=== PATIENT | female | born 1940 | race Caucasian/White ===

== ENCOUNTER 2017-01-09 14:35 | Inpatient (IN) ==
--- NOTE | 2017-01-09 14:41 | Emergency Department Note ---
Disposition Clinical Impression: CHF (congestive heart failure) Qualifiers: Congestive heart failure type: unspecified congestive heart failure type Congestive heart failure chronicity: acute Qualified Code(s): I50.9 - Heart failure, unspecified Disposition: Admitted As Inpatient Condition: Fair Referrals: Mallika Wooten CNP [Primary Care Provider] - Forms: ED Satisfaction Letter Weakness HPI - General Chief complaint: ED Shortness of Breath/Dyspnea Stated complaint: saul, hemmrhoid bleeding that stopped Time Seen by Provider: 01/09/17 14:39 Source: patient, family, EMS Mode of arrival: EMS Limitations: no limitations Nursing Notes Reviewed: Yes Vital Signs Reviewed: Yes - History of Present Illness HPI Narrative: Patient reports that she has been having shortness of breath "for a long time" that has gradually been getting worse. She also states she has had trouble with some suspected hemorrhoidal bleeding for about 2 days. She states she will sometimes fall asleep on the toilet in her "rectum comes out". She relates this to "cause it to bleed". She has not been passing clots or melena. She denies abdominal pain, nausea, vomiting or diarrhea. She denies any urinary troubles. She denies cough, fevers chills or chest pain. She states she does have history of chronic respiratory insufficiency and is on 3 L of oxygen at all times. She states she does have an inhaler but that she was too weak to use it. She denies any new lower extremity swelling states that she has had to have compressive wraps for 6 months. She indicates her family visited today and insisted that she come in to the emergency department for evaluation. They called a private transport ambulance and she has been brought in for evaluation. Pt Subjective Complaint: generalized weakness/fatigue, other (Dyspnea, suspected hemorrhoidal bleeding) Onset (ago): week(s) Duration: gradually worsening Location: generalized Migration: none Pain Severity: none Worsens with: exertion Associated symptoms: Reports: shortness of breath. Denies: chest pain, confusion, dark stools, diaphoresis, dysuria, easy bruising, headaches, loss of appetite, nausea/vomiting, myalgias, rash, syncope - Related Data Home Medications Medication Instructions Recorded Confirmed Carvedilol [Coreg] 6.25 mg PO BID 01/09/17 01/09/17 Citalopram Hydrobromide 10 mg PO DAILY 01/09/17 01/09/17 [Citalopram HBr] Clopidogrel [Plavix] 75 mg PO DAILY 01/09/17 01/09/17 Diltiazem HCl [Diltiazem ER] 120 mg PO QAM 01/09/17 01/09/17 Ferrous Sulfate 325 mg PO DAILY 01/09/17 01/09/17 Folic Acid 1 mg PO DAILY 01/09/17 01/09/17 Furosemide [Lasix] 40 mg PO DAILY 01/09/17 01/09/17 Gabapentin [Neurontin] 300 mg PO TID 01/09/17 01/09/17 Isosorbide MONOnitrate (24 HR) 30 mg PO DAILY 01/09/17 01/09/17 [Imdur] Loratadine [Allergy Relief] 10 mg PO DAILY 01/09/17 01/09/17 Nitroglycerin [Nitrostat] 0.4 mg SL 01/09/17 Pantoprazole Sodium [Protonix] 40 mg PO BID 01/09/17 01/09/17 Potassium Chloride [K-Tab ER] 20 meq PO DAILY 01/09/17 01/09/17 Ropinirole HCl [Requip] 3 mg PO 01/09/17 Allergies Allergy/AdvReac Type Severity Reaction Status Date / Time codeine AdvReac Vomiting Verified 09/02/15 18:03 [From Tylenol-Codeine #3] All systems ED: reviewed and negative except as stated. Past Medical History - Past Medical History Attestation: Yes The following information was validated with the patient. Source: patient, nursing notes reviewed Medical history: Reports: arthritis, atrial fibrillation, cardiomyopathy, CHF, GERD, GI bleed, hypertension, myocardial infarction, TIA, other Surgical history: Reports: Psychiatric history: Reports: depression [employer] history: Reports: spontaneous - Social History Smoking Status: Never smoker Smokeless Tobacco Status: No Alcohol use: Reports: none Drug use: Reports: none Physical Exam - General Limitations: no limitations General appearance: alert, in no apparent distress - Head Head exam: atraumatic, normocephalic, normal inspection - Eye Eye exam: Present: normal appearance, PERRL, EOMI. Absent: scleral icterus, conjunctival injection - ENT ENT exam: normal exam, normal oropharynx, mucous membranes moist - Neck Neck exam: Present: normal inspection, full ROM, trachea midline - Chest Chest inspection: Present: normal inspection, symmetric chest wall rise - Respiratory Respiratory exam: Present: normal lung sounds bilaterally. Absent: respiratory distress, wheezes, prolonged expiratory phase - Cardiovascular Cardiovascular exam: Present: normal rhythm, irregular rhythm, normal heart sounds. Absent: JVD - Abdominal Exam Abdominal exam: Present: soft, Non-Tender, normal bowel sounds. 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 There is a little bit of a yellowish stool and no blood present.). Absent: black stool, bloody stool, fecal impaction, hemorrhoids, mass, tenderness - Extremities Exam Extremities exam: Present: normal inspection, full ROM, normal capillary refill , pedal edema (1- 2+.). Absent: tenderness, calf tenderness - Expanded Lower Extremity Exam Neurovascular/Tendon exam: Present: normal capillary refill. Absent: motor deficit, sensory deficit, tendon deficit Gait: observed and normal - Neurological Exam Neurological exam: Present: alert, oriented X3 - Psychiatric Psychiatric exam: Present: normal affect, normal mood - Skin Skin exam: Present: warm, dry, intact, normal color. Absent: rash, diaphoresis , pallor Course Course Narrative: 1540: There has been discussed with the patient and Dr. Dean. She is being administered a dose of IV Lasix and is being coordinated with admission to the hospital with verbal orders obtained. Vital Signs Temperature 97.0 F L 01/09/17 14:37 Pulse Rate 47 01/09/17 14:37 Respiratory Rate 18 01/09/17 14:37 Blood Pressure 97/55 01/09/17 14:37 O2 Sat by Pulse Oximetry 92 01/09/17 14:37 Temperature 97.0 F L 01/09/17 14:37 Pulse Rate 52 01/09/17 15:35 Respiratory Rate 22 01/09/17 15:35 Blood Pressure 102/63 01/09/17 15:35 O2 Sat by Pulse Oximetry 96 01/09/17 15:35 Oxygen Delivery Oxygen Delivery Nasal Cannula Weakness - Differential Diagnosis Differential Diagnosis: Likely: anemia, dehydration, medication effect, metabolic - Lab Data Lab results reviewed: Yes I reviewed the patient's lab results. Result diagrams: 01/09/17 14:55 01/09/17 14:55 Lab Results 01/09/17 01/09/17 01/09/17 Range/Units 14:55 14:55 14:55 WBC 4.1 L (4.3-11.1) K/mcL RBC 3.75 L (3.82-4.97) M/mcL Hgb 10.2 L (11.5-15.4) g/dL Hct 35.0 L (35.3-44.9) % MCV 93.3 (83.0-100.0) fL MCH 27.2 L (28.0-33.3) pg MCHC 29.1 L (31.6-35.5) g/dL RDW 16.6 H (11.5-14.5) % Plt Count 131 L (140-400) K/mcL MPV 10.6 (9.4-12.4) fL Immature Gran % 0.5 (0-4) % Seg Neutrophils % 73.8 % Lymphocytes % 16.4 % Monocytes % 7.1 % Eosinophils % 1.5 % Basophils % 0.7 % Neutrophils # 3.0 (1.6-8.9) K/mcL Lymphocytes # 0.7 (0.6-4.6) K/mcL Monocytes # 0.3 (0.0-1.3) K/mcL Eosinophils # 0.1 (0.0-0.6) K/mcL Basophils # 0.0 (0.0-0.2) K/mcL PT 16.1 H (9.4-12.1) Seconds INR 1.5 APTT 29.8 (26.0-36.0) Seconds VBG Lactic Acid (0.5-2.2) mmol/L Sodium 142 (136-145) mEq/L Potassium 4.0 (3.5-4.5) mEq/L Chloride 102 (98-109) mEq/L Carbon Dioxide 28 (19-29) mEq/L BUN 18 (7-20) mg/dL Creatinine 0.89 (0.57-1.11) mg/dL Est GFR ( Amer) > 60 (> 60) Est GFR (Non-Af Amer) > 60 (> 60) BUN/Creatinine Ratio 20 (6-26) Glucose 129 H (70-99) mg/dL Calculated Osmolality 298 (280-300) Calcium 8.1 L (8.6-10.8) mg/dL Troponin I (0-0.03) ng/mL B-Natriuretic Peptide (0-100) pg/mL 01/09/17 01/09/17 01/09/17 Range/Units 14:55 14:55 14:55 WBC (4.3-11.1) K/mcL RBC (3.82-4.97) M/mcL Hgb (11.5-15.4) g/dL Hct (35.3-44.9) % MCV (83.0-100.0) fL MCH (28.0-33.3) pg MCHC (31.6-35.5) g/dL RDW (11.5-14.5) % Plt Count (140-400) K/mcL MPV (9.4-12.4) fL Immature Gran % (0-4) % Seg Neutrophils % % Lymphocytes % % Monocytes % % Eosinophils % % Basophils % % Neutrophils # (1.6-8.9) K/mcL Lymphocytes # (0.6-4.6) K/mcL Monocytes # (0.0-1.3) K/mcL Eosinophils # (0.0-0.6) K/mcL Basophils # (0.0-0.2) K/mcL PT (9.4-12.1) Seconds INR APTT (26.0-36.0) Seconds VBG Lactic Acid 1.1 (0.5-2.2) mmol/L Sodium (136-145) mEq/L Potassium (3.5-4.5) mEq/L Chloride (98-109) mEq/L Carbon Dioxide (19-29) mEq/L BUN (7-20) mg/dL Creatinine (0.57-1.11) mg/dL Est GFR ( Amer) (> 60) Est GFR (Non-Af Amer) (> 60) BUN/Creatinine Ratio (6-26) Glucose (70-99) mg/dL Calculated Osmolality (280-300) Calcium (8.6-10.8) mg/dL Troponin I 0.02 (0-0.03) ng/mL B-Natriuretic Peptide 1427 H (0-100) pg/mL - Radiology Data Radiology results reviewed: Yes I reviewed the patient's radiology results. Single view chest x-ray is performed. This demonstrates cardiomegaly with some increased interstitial markings consistent with pulmonary edema. There is no acute infiltrates, effusion or pneumothorax. This is on my interpretation. Impressions Chest X-Ray 01/09/17 14:40 IMPRESSION: CHF and mild pulmonary edema. D/ / Rony Armas MD / Rony Armas MD Interpreting Provider: Rony Armas MD - EKG Data EKG attestation: Yes I reviewed and interpreted this EKG. EKG shows normal: axis, intervals, QRS complexes, ST-T waves Rate: bradycardia (54) Interpretation: nonspecific ST-T wave changes
[2017-01-09 15:14] LABS: Basophils % 0.7 %; Eosinophils # 0.1 K/mcL (0.0-0.6); Eosinophils % 1.5 %; Hemoglobin 10.2 g/dL (11.5-15.4); Immature Granulocytes % 0.5 % (0-4); Lymphocytes # 0.7 K/mcL (0.6-4.6); Lymphocytes % 16.4 %; Mean Corpuscular HGB Conc 29.1 g/dL (31.6-35.5); Mean Corpuscular Hemoglobin 27.2 pg (28.0-33.3); Mean Corpuscular Volume 93.3 fL (83.0-100.0); Mean Platelet Volume 10.6 fL (9.4-12.4); Monocytes # 0.3 K/mcL (0.0-1.3); Monocytes % 7.1 %; Platelet Count 131 K/mcL (140-400); Red Blood Count 3.75 M/mcL (3.82-4.97); Red Cell Distribution Width 16.6 % (11.5-14.5); Segmented Neutrophils % 73.8 %
[2017-01-09 15:16] LABS: INR 1.5; Prothrombin Time 16.1 Seconds (9.4-12.1)
[2017-01-09 15:18] LABS: Activated Partial Thrombo Time 29.8 Seconds (26.0-36.0)
[2017-01-09 15:23] LABS: BUN/Creatinine Ratio 20 (6-26); Blood Urea Nitrogen 18 mg/dL (7-20); Calcium 8.1 mg/dL (8.6-10.8); Carbon Dioxide 28 mEq/L (19-29); Chloride 102 mEq/L (98-109); Glucose 129 mg/dL (70-99); Osmolality,Calculated 298 (280-300); Sodium 142 mEq/L (136-145); eGFR For African Americans > 60 (> 60); eGFR For Non-African Americans > 60 (> 60)
[2017-01-09] MEDS ORDERED: Furosemide 40 MG/4 ML VIAL IVP ONE (15:37)
[2017-01-09] MEDS ORDERED: Ondansetron 4 MG/2 ML VIAL IVP ONE ×2 (15:56→17:23)
[2017-01-09] MEDS ORDERED: Naloxone 0.4 MG/ML INJ IVP PRN (17:23)
[2017-01-09] MEDS ORDERED: Ondansetron 4 MG/2 ML VIAL IVP PRN (17:23)
[2017-01-09] MEDS ORDERED: MOM Conc 10 ML UD.LIQ PO PRN (17:23)
[2017-01-09] MEDS: Gabapentin 300 MG CAPSULE PO SCH (20:58)
[2017-01-09] MEDS: Acetaminophen 325 MG TABLET PO PRN (20:58)
[2017-01-10 06:06] LABS: Bilirubin,Urine Small (Negative); Blood,Urine Trace-intact (Negative); Clarity,Urine Clear (Clear); Color,Urine Dark Yellow (Yellow); Glucose,Urine (UA) Normal (Normal); Ketones,Urine Negative (Negative); Leukocyte Esterase,Urine Small (Negative); Nitrite,Urine Negative (Negative); PH,Urine 5.5 pH Units (5.0-8.0); Protein,Urine Trace mg/dL (Neg-Trace); Specific Gravity,Urine 1.015 (1.010-1.025)
[2017-01-10 06:16] LABS: Hyaline Casts,Urine Few per lpf (None-Few); RBC,Urine 0-3 per hpf (0-3); Squamous Epithelial Cell,Urine Few per lpf (None-Few)
[2017-01-10] MEDS ORDERED: Furosemide 40 MG TABLET PO SCH (09:00)
[2017-01-10] MEDS ORDERED: Isosorbide MONOnitrate (24 HR) 30 MG TAB.ER.24H PO SCH ×2 (09:00→12:03)
[2017-01-10] MEDS: Gabapentin 300 MG CAPSULE PO SCH ×3 (09:32→20:31)
[2017-01-10] MEDS: Diltiazem CD (24hr) 120 MG CAPSULE PO SCH (09:32)
[2017-01-10] MEDS: Folic Acid 1 MG TABLET PO SCH (09:32)
[2017-01-10] MEDS: Loratadine 10 MG TABLET PO SCH (09:32)
--- NOTE | 2017-01-10 12:09 | Internal Med History&Physical ---
Date of Encounter: 01/10/17 Time of Encounter: 11:30 Assessment and Plan (1) Chronic diastolic CHF (congestive heart failure) Current visit: No Status: Acute Will change Lasix to IV Bumex. Increase isosorbide and monitor labs. (2) A-fib Current visit: No Status: Acute She had GI bleed on NOAC (Xarelto) in the past. Continue Plavix. Her rate is controlled. Qualifiers: Atrial fibrillation type: chronic Qualified Code(s): I48.2 - Chronic atrial fibrillation (3) Anemia Current visit: No Status: Acute Will order anemia testing in a.m. Qualifiers: Anemia type: unspecified type Qualified Code(s): D64.9 - Anemia, unspecified (4) DM type 2 (diabetes mellitus, type 2) Current visit: Yes Status: Acute We will check hemoglobin A1c in a.m. Qualifiers: Diabetes mellitus complication status: without complication Diabetes mellitus rat exterminator insulin use: without mcfp use Qualified Code(s): E11.9 - Type 2 diabetes mellitus without complications (5) High blood pressure Current visit: Yes Status: Chronic Continue home regimen and monitor blood pressure. Qualifiers: Hypertension type: essential hypertension Qualified Code(s): I10 - Essential (primary) hypertension Internal Medicine - H&P: HPI Chief complaint: Dyspnea Admitted From: Home Plans for Post Hospital Care: Home History of present illness: Ms. Castaneda is a 76 year old female who came to emergency room stating she had increasing dyspnea over the past 2 months. It seemed to worsen over the past 1- 2 days and her family decided she should come to the hospital. She was evaluated in emergency room and felt to have exacerbation of heart failure. She was admitted to [facility] floor for ongoing care needs. Her cardiovascular history is significant for heart failure with preserved ejection fraction. Echocardiogram done 10/17/2016 showed LVEF 65%. Echocardiogram June 2016 showed concentric LVH with the interventricular septum and posterior wall thickness measurements 1.4 cm each. There was biatrial enlargement with left atrial size recorded 4.5 cm. There was mild to moderate AI, mild , mild MR, and severe TR. The estimated RVSP was elevated at 52-62 mmHg. She had questionable NSTEMI June 2014 at [facility]. Heart catheter showed moderate coronary artery disease without intervention done. She has chronic atrial fibrillation and is maintained on Plavix since she had GI bleed on Xarelto. She denies DVT or pulmonary embolus. She has history of hypertension. Her respiratory history is significant for being a lifelong nonsmoker. She has been diagnosed with COPD and wears oxygen 01/01 at home at 3 L/m. Past Med Surg Social Fam HX - Past Medical History Medical history: arthritis, atrial fibrillation, cardiomyopathy, CHF, GERD, GI bleed, hypertension, myocardial infarction, TIA, other Psychiatric history: depression - Past Surgical History Surgical History: - Social History Smoking Status: Never smoker Smokeless Tobacco Status: No Alcohol use: none Drug use: none - Family History Mother Living Status: Hx Family GI Disorders: Yes Internal Medicine - H&P: Meds Carvedilol [Coreg] 6.25 mg PO BID 01/09/17 [History] Citalopram Hydrobromide [Citalopram HBr] 10 mg PO DAILY 01/09/17 [History] Clopidogrel [Plavix] 75 mg PO DAILY 01/09/17 [History] Diltiazem HCl [Diltiazem ER] 120 mg PO QAM 01/09/17 [History] Ferrous Sulfate 325 mg PO DAILY 01/09/17 [History] Folic Acid 1 mg PO DAILY 01/09/17 [History] Furosemide [Lasix] 40 mg PO DAILY 01/09/17 [History] Gabapentin [Neurontin] 300 mg PO TID 01/09/17 [History] HYDROcodone/Acet 7.5/325 mg [[place] 7.5-325 mg] 1 tab PO Q6H 01/09/17 [History] Isosorbide MONOnitrate (24 HR) [Imdur] 30 mg PO DAILY 01/09/17 [History] Loratadine [Allergy Relief] 10 mg PO DAILY 01/09/17 [History] Nitroglycerin [Nitrostat] 0.4 mg SL 01/09/17 [History] Pantoprazole Sodium [Protonix] 40 mg PO BID 01/09/17 [History] Potassium Chloride [K-Tab ER] 20 meq PO DAILY 01/09/17 [History] Ropinirole HCl [Requip] 3 mg PO 01/09/17 [History] Ventolin Hfa 01/09/17 [History] Allergies codeine [From Tylenol-Codeine #3] Adverse Reaction (Verified 09/02/15 18:03) Vomiting All Systems PM: A 10-system review of systems was performed and is negative for pertinent findings except as documented above in the HPI. Review of systems: Gen.: She states her weight is increased 10-20 pounds in the past year Cardiovascular: As per history of present illness Respiratory: As per history of present illness GI: She denies disorders of her liver gallbladder or exocrine pancreas. She had GI bleed from taking Xarelto several years ago. She has rare GERD symptoms. : No history of hematuria dysuria or kidney stones Neurologic: She states she had a "mini stroke" in the past but no permanent neurologic deficit. She has history of RLS. She denies seizures. Endocrine: She was diagnosed with borderline DM 2 in the past. Hemoglobin A1c was 6.4% on 07/05/2014. She denies thyroid disease or hyperlipidemia Hematology/oncology: She denies blood disorders or cancers. She is anemic and takes iron and folate replacements Psychiatric: She has depression but denies anxiety or other mental health issues Musk skeletal: She has DJD but denies gout or osteoporosis. - Constitutional Vitals: Temp Pulse Resp BP Pulse Ox 97.7 F 80 20 151/76 98 01/10/17 11:16 01/10/17 11:16 01/10/17 11:16 01/10/17 11:16 01/10/17 11:16 Exam: Gen.: She is well-developed overweight female sitting on the side of bed who appears in minimal distress HEENT: Head is atraumatic and normal cephalic. Eyes: EOMI. There is no scleral icterus. Mouth: Mucosa is moist. Neck: Supple and nontender. There is no thyromegaly or adenopathy noted. Heart: Irregularly irregular without murmurs heard. Lungs: No wheezes or crackles are heard. Abdomen: She has a large abdomen. It is nontender to palpation. Exam is limited because she is in the seated position. Extremities: She has 2-3+ edema of the dorsum of the feet and lower legs bilaterally. Dorsalis pedis and posterior tibial pulses are not palpable. She has mild DJD changes of her hands. Neurologic: Mental status: She is talkative and a reliable historian. Cranial nerves: Smile is symmetric. Forehead wrinkles bilaterally. Tongue protrudes midline. EOMI. Motor: There is no pronator drift. Cerebellar: Finger to nose is intact bilaterally. Skin: Warm and dry Internal Med - H&P Results - Labs CBC & Chem 7: 01/09/17 14:55 01/09/17 14:55 Labs: Cardiac Enzymes 01/09/17 01/09/17 01/10/17 Range/Units 18:25 23:45 05:41 Troponin I 0.01 0.02 0.02 (0-0.03) ng/mL
[2017-01-10] MEDS: Bumetanide 1 MG/4 ML VIAL IVP SCH ×2 (12:47→17:50)
[2017-01-10] MEDS: Acetaminophen 325 MG TABLET PO PRN (15:32)
[2017-01-10] MEDS ORDERED: *HR* HYDROcodone/Acet 7.5/325 mg TABLET PO PRN (19:53)
[2017-01-10] MEDS: *HR* HYDROcodone/Acet 7.5/325 mg TABLET PO PRN (20:32)
--- NOTE | 2017-01-10 20:37 | Electrocardiograph Report ---
[address] [place], [place] [address] Test Date: 2017-01-09 Pat Name: Elizabeth Castaneda Department: 9201 Room: [facility] Gender: F Customer Support Manager: [id number] : 1940 Requested By: Sumit Ceballos Order Number: [id number] Reading MD: Yehuda Prajapati MD Measurements Intervals [place] Rate: 54 P: LA: 0 QRS: 77 QRSD: 82 T: 7 QT: 454 QTc: 439 Interpretive Statements ATRIAL FIBRILLATION WITH SLOW VENTRICULAR RESPONSE LOW QRS VOLTAGE IN PRECORDIAL LEADS Electronically Signed On 01-10-2017 20:35:29 EDT by Yehuda Prajapati MD
[2017-01-11] MEDS: *HR* HYDROcodone/Acet 7.5/325 mg TABLET PO PRN ×2 (04:55→11:52)
[2017-01-11] MEDS ORDERED: *HR* Enoxaparin 40 MG/0.4 ML SYRINGE SQ SCH (06:00)
[2017-01-11 06:38] VITALS: BP 129/77
[2017-01-11 06:40] LABS: Basophils % 0.5 %; Eosinophils # 0.1 K/mcL (0.0-0.6); Eosinophils % 1.6 %; Hematocrit 35.1 % (35.3-44.9); Hemoglobin 10.5 g/dL (11.5-15.4); Immature Granulocytes % 0.5 % (0-4); Lymphocytes # 0.7 K/mcL (0.6-4.6); Lymphocytes % 10.7 %; Mean Corpuscular HGB Conc 29.9 g/dL (31.6-35.5); Mean Corpuscular Hemoglobin 27.3 pg (28.0-33.3); Mean Corpuscular Volume 91.4 fL (83.0-100.0); Mean Platelet Volume 10.3 fL (9.4-12.4); Monocytes # 0.5 K/mcL (0.0-1.3); Monocytes % 7.7 %; Platelet Count 153 K/mcL (140-400); Red Blood Count 3.84 M/mcL (3.82-4.97); Red Cell Distribution Width 16.7 % (11.5-14.5)
[2017-01-11 06:56] LABS: Alanine Aminotransferase 18 Units/L (0-55); Albumin/Globulin Ratio 0.8 (1.1-2.2); Alkaline Phosphatase 148 Units/L (38-126); Aspartate Amino Transferase 24 Units/L (5-34); BUN/Creatinine Ratio 21 (6-26); Bilirubin,Total 1.3 mg/dL (0.2-1.2); Blood Urea Nitrogen 19 mg/dL (7-20); Calcium 8.5 mg/dL (8.6-10.8); Carbon Dioxide 30 mEq/L (19-29); Chloride 100 mEq/L (98-109); Globulin 3.7 g/dL (2.4-3.5); Glucose 111 mg/dL (70-99); Magnesium 2.1 mg/dL (1.6-2.6); Osmolality,Calculated 295 (280-300); Sodium 141 mEq/L (136-145); Total Protein 6.7 g/dL (6.0-8.3); eGFR For African Americans > 60 (> 60); eGFR For Non-African Americans 59 (> 60)
[2017-01-11 09:57] LABS: % Iron Saturation 16 % (15-50); Iron 46 mcg/dL (50-170); Transferrin 209 mg/dL (180-382)
[2017-01-11] MEDS: Bumetanide 1 MG/4 ML VIAL IVP SCH (10:15)
[2017-01-11] MEDS: Folic Acid 1 MG TABLET PO SCH (10:16)
[2017-01-11] MEDS: Gabapentin 300 MG CAPSULE PO SCH (10:16)
[2017-01-11] MEDS: Loratadine 10 MG TABLET PO SCH (10:16)
[2017-01-11] MEDS: Diltiazem CD (24hr) 120 MG CAPSULE PO SCH (10:16)
[2017-01-11 10:19] LABS: Ferritin 234 ng/ml (5-204)
[2017-01-11 10:28] LABS: Hemoglobin A1C 5.9 %
[2017-01-11 10:33] LABS: Folate 16.8 ng/mL (7.0-31.4)
--- NOTE | 2017-01-11 10:35 | Discharge Summary ---
Date of Encounter: 01/11/17 Time of Encounter: 10:20 - Discharge Diagnosis (1) Chronic diastolic CHF (congestive heart failure) Priority: Primary Status: Acute (2) A-fib Priority: Secondary Status: Chronic Qualifiers: Atrial fibrillation type: chronic Qualified Code(s): I48.2 - Chronic atrial fibrillation (3) Anemia Priority: Secondary Status: Acute Qualifiers: Anemia type: unspecified type Qualified Code(s): D64.9 - Anemia, unspecified (4) DM type 2 (diabetes mellitus, type 2) Priority: Secondary Status: Chronic Qualifiers: Diabetes mellitus complication status: without complication Diabetes mellitus computer terminal operator insulin use: without prison use Qualified Code(s): E11.9 - Type 2 diabetes mellitus without complications (5) High blood pressure Priority: Secondary Status: Chronic Qualifiers: Hypertension type: essential hypertension Qualified Code(s): I10 - Essential (primary) hypertension - Discharge Medications Prescriptions: Bumetanide [Bumex] 2 mg PO DAILY #60 tablet Isosorbide MONOnitrate (24 HR) [Imdur] 60 mg PO DAILY #30 tab.er.24h Home Medications: Carvedilol [Coreg] 6.25 mg PO BID 01/09/17 [History] Citalopram Hydrobromide [Citalopram HBr] 10 mg PO DAILY 01/09/17 [History] Clopidogrel [Plavix] 75 mg PO DAILY 01/09/17 [History] Diltiazem HCl [Diltiazem ER] 120 mg PO QAM 01/09/17 [History] Ferrous Sulfate 325 mg PO DAILY 01/09/17 [History] Folic Acid 1 mg PO DAILY 01/09/17 [History] HYDROcodone/Acet 7.5/325 mg [[place] 7.5-325 mg] 1 tab PO Q6H 01/09/17 [History] Nitroglycerin [Nitrostat] 0.4 mg SL 01/09/17 [History] Pantoprazole Sodium [Protonix] 40 mg PO BID 01/09/17 [History] Potassium Chloride [K-Tab ER] 20 meq PO DAILY 01/09/17 [History] Ropinirole HCl [Requip] 3 mg PO 01/09/17 [History] Ventolin Hfa 01/09/17 [History] Bumetanide [Bumex] 2 mg PO DAILY #60 tablet 01/11/17 [Rx] Gabapentin [Neurontin] 300 mg PO BID #0 01/11/17 [Rx] Isosorbide MONOnitrate (24 HR) [Imdur] 60 mg PO DAILY #30 tab.er.24h 01/11/17 [ Rx] Loratadine [Allergy Relief] 10 mg PO DAILY PRN #0 01/11/17 [Rx] Allergies/Adverse Reactions: Allergies codeine [From Tylenol-Codeine #3] Adverse Reaction (Verified 09/02/15 18:03) Vomiting Date of admission: 01/10/17 17:08 Primary care physician: Mallika Wooten CNP - Patient Status Disposition: Home Health Service Condition: Fair Functional capacity at discharge: wheelchair bound Overall status at discharge: patient is progressing back to baseline - Discharge Instructions Follow Up With: Mallika Wooten CNP [Primary Care Provider] - 1 week - Diet and Activity Activity: resume usual activities as tolerated Diet: advance to your usual diet Hospital course: Ms. Castaneda is a 76 year old female who came to emergency room stating she had increasing dyspnea over the past 2 months. It seemed to worsen over the past 1- 2 days and her family decided she should come to the hospital. She was evaluated in emergency room and felt to have exacerbation of heart failure. She was admitted to [facility] floor for ongoing care needs. Initial orders were written by the emergency room physician. I saw her on January 10 and performed the history and physical. She was started on IV Bumex. Lasix was discontinued. Isosorbide dose was increased to 60 mg daily. When I saw her on the following day her dyspnea had improved and she felt stable for discharge home which I felt was reasonable. She will continue on the higher dose isosorbide and remain on Bumex instead of Lasix. Anemia testing was ordered with several results pending at time of discharge. Hemoglobin A1c returned acceptable at 5.9%. She will be discharged home and follow with her PCP Mallika Wooten CNP within 1 week. - Time Spent with Patient Total time spent providing and/or coordinating discharge services: - Constitutional Vitals: Temp Pulse Resp BP Pulse Ox 97.8 F 78 16 129/77 98 01/11/17 06:31 01/11/17 06:31 01/11/17 06:31 01/11/17 06:31 01/11/17 06:31
--- NOTE | 2017-01-11 10:41 | Physician Discharge Referral ---
Home Health/Hosp Referral Info Transfer to: Home Health Attending Provider: Jermaine Provider in Charge Post Discharge: PCP (Mallika Wooten CNP) - Diagnosis (1) Chronic diastolic CHF (congestive heart failure) Priority: Primary Status: Acute (2) A-fib Priority: Secondary Status: Chronic (3) Anemia Priority: Secondary Status: Acute (4) DM type 2 (diabetes mellitus, type 2) Priority: Secondary Status: Chronic (5) High blood pressure Priority: Secondary Status: Chronic - Respiratory Orders Oxygen / L per min (Continue oxygen at home at 3 L/m by nasal cannula 01/01.) Smoking Cessation: Smoking cessation has been advised. For more information, call the [place] Tobacco Quit Line at 8-891-GJOQ-NOW. - Diet/Nutrition Diet/Nutrition Orders: Regular - Activity Activity Orders: Chair - Services Needed Following services are medically necessary services: Nursing, Home Health Aide, Physical Therapy, Occupational Therapy - Transfer Medications Prescriptions: Bumetanide [Bumex] 2 mg PO DAILY #60 tablet Isosorbide MONOnitrate (24 HR) [Imdur] 60 mg PO DAILY #30 tab.er.24h Home Medications: Carvedilol [Coreg] 6.25 mg PO BID 01/09/17 [History] Citalopram Hydrobromide [Citalopram HBr] 10 mg PO DAILY 01/09/17 [History] Clopidogrel [Plavix] 75 mg PO DAILY 01/09/17 [History] Diltiazem HCl [Diltiazem ER] 120 mg PO QAM 01/09/17 [History] Ferrous Sulfate 325 mg PO DAILY 01/09/17 [History] Folic Acid 1 mg PO DAILY 01/09/17 [History] HYDROcodone/Acet 7.5/325 mg [[place] 7.5-325 mg] 1 tab PO Q6H 01/09/17 [History] Nitroglycerin [Nitrostat] 0.4 mg SL 01/09/17 [History] Pantoprazole Sodium [Protonix] 40 mg PO BID 01/09/17 [History] Potassium Chloride [K-Tab ER] 20 meq PO DAILY 01/09/17 [History] Ropinirole HCl [Requip] 3 mg PO 01/09/17 [History] Ventolin Hfa 01/09/17 [History] Bumetanide [Bumex] 2 mg PO DAILY #60 tablet 01/11/17 [Rx] Gabapentin [Neurontin] 300 mg PO BID #0 01/11/17 [Rx] Isosorbide MONOnitrate (24 HR) [Imdur] 60 mg PO DAILY #30 tab.er.24h 01/11/17 [ Rx] Loratadine [Allergy Relief] 10 mg PO DAILY PRN #0 01/11/17 [Rx] Allergies/Adverse Reactions: Allergies codeine [From Tylenol-Codeine #3] Adverse Reaction (Verified 09/02/15 18:03) Vomiting Certification: Further, I certify that my clinical findings support that this patient is homebound (i.e. absences from home require considerable and taxing effort and are for medical reasons or zoroastrianism services or infrequently or short duration when for other reasons) because: Homebound Reason: Leaving home requires considerable and taxing effort due to condition (Inability to walk) Attestation: My signature below is to certify that this patient is under my care and that I, or nurse practitioner, or a physician's assistant finance manager working with me, has a face-to -face encounter with this patient.
== END 2017-01-11 12:35 | disposition home health service (06) | DRG 293 ==
LOC: INPPIK 14:35 → EMEROOPIK 14:35 → INPPIK 16:45
PROVIDERS: ADMIT Internal Medicine; ATTEND Internal Medicine

== ENCOUNTER 2017-01-16 16:23 | Inpatient (IN) ==
[2017-01-16] MEDS ORDERED: Bumetanide 1 MG/4 ML VIAL IVP ONE (16:30)
--- NOTE | 2017-01-16 16:33 | Emergency Department Note ---
Disposition Clinical Impression: CHF (congestive heart failure) Qualifiers: Congestive heart failure type: systolic Congestive heart failure chronicity: acute on chronic Qualified Code(s): I50.23 - Acute on chronic systolic ( congestive) heart failure Disposition: Admitted As Inpatient Condition: Good Referrals: Mallika Wooten PLANER OFFBEARER [Primary Care Provider] - Forms: ED Satisfaction Letter Time of Disposition: 17:59 SOB HPI - General Chief Complaint: ED Shortness of Breath/Dyspnea Stated Complaint: Difficulty Breathing Time Seen by Provider: 01/16/17 16:25 Source: patient Mode of arrival: EMS Limitations: no limitations Nursing Notes Reviewed: Yes Vital Signs Reviewed: Yes - History of Present Illness 76-year-old white female with a history of congestive heart failure who presents complaining of shortness of breath. She was actually seen and admitted here on 01/10/17 for the same. She states she has been short of breath since she was discharged, getting gradually worse. No chest pain. No cough. She has chronic leg edema which she states is worse. When she was discharged she was switched to excess and her M Fidencio dose was increased. She did not implement these changes because she wanted to check with her residential driver before changing her medications. She has an appointment with her residential driver on the . Pt Subjective Complaint: shortness of breath Onset (ago): week(s) (1) Context: other (History of congestive heart failure) Severity: moderate Consistency/Duration: constant Improves with: oxygen, rest Worsens with: lying flat, exertion Known history of: congestive heart failure Associated symptoms: Reports: denies other symptoms Treatment prior to arrival: oxygen Cough present: No - Related Data Home oxygen amount: 3 liters Home Medications Medication Instructions Recorded Confirmed Carvedilol [Coreg] 6.25 mg PO BID 01/09/17 01/09/17 Citalopram Hydrobromide 10 mg PO DAILY 01/09/17 01/09/17 [Citalopram HBr] Clopidogrel [Plavix] 75 mg PO DAILY 01/09/17 01/09/17 Diltiazem HCl [Diltiazem ER] 120 mg PO QAM 01/09/17 01/09/17 Ferrous Sulfate 325 mg PO DAILY 01/09/17 01/09/17 Folic Acid 1 mg PO DAILY 01/09/17 01/09/17 HYDROcodone/Acet 7.5/325 mg [[place] 1 tab PO Q6H 01/09/17 01/09/17 7.5-325 mg] Nitroglycerin [Nitrostat] 0.4 mg SL PRN 01/09/17 Pantoprazole Sodium [Protonix] 40 mg PO BID 01/09/17 01/09/17 Potassium Chloride [K-Tab ER] 20 meq PO DAILY 01/09/17 01/09/17 Ropinirole HCl [Requip] 3 mg PO DAILY 01/09/17 Previous Rx's Medication Instructions Recorded Bumetanide [Bumex] 2 mg PO DAILY #60 tablet 01/11/17 Gabapentin [Neurontin] 300 mg PO BID #0 01/11/17 Isosorbide MONOnitrate (24 HR) 60 mg PO DAILY #30 tab.er.24h 01/11/17 [Imdur] Loratadine [Allergy Relief] 10 mg PO DAILY PRN #0 01/11/17 Allergies Allergy/AdvReac Type Severity Reaction Status Date / Time codeine AdvReac Vomiting Verified 09/02/15 18:03 [From Tylenol-Codeine #3] All systems ED: reviewed and negative except as stated. Constitutional: Denies: fever, chills Cardiovascular: Denies: chest pain Respiratory: Reports: dyspnea. Denies: cough Gastrointestinal: Denies: abdominal pain Musculoskeletal: Reports: other (Leg edema) Past Medical History - Past Medical History Medical history: Reports: arthritis, atrial fibrillation, cardiomyopathy, CHF, GERD, GI bleed, hypertension, myocardial infarction, TIA, other Surgical history: Reports: Psychiatric history: Reports: depression PARLIAMENTARY ARCHIVIST history: Reports: spontaneous - Social History Smoking Status: Never smoker Smokeless Tobacco Status: No Alcohol use: Reports: none Drug use: Reports: none Physical Exam - General Limitations: no limitations General appearance: alert, in no apparent distress - Head Head exam: atraumatic, normocephalic - Eye Eye exam: Present: PERRL, EOMI - ENT ENT exam: normal oropharynx, mucous membranes moist - Neck Neck exam: Present: normal inspection, full ROM, trachea midline. Absent: lymphadenopathy - Respiratory Respiratory exam: Present: other (Decreased breath sounds in the bases to midlung field. Bibasilar rales from bases to midlung field.). Absent: respiratory distress - Cardiovascular Cardiovascular exam: Present: regular rate, gallop. Absent: systolic murmur, diastolic murmur - Abdominal Exam Abdominal exam: Present: soft, Non-Tender, other (Obese) - Extremities Exam Extremities exam: Present: other (3-4+ nonpitting edema below the knees including the ankles and feet. Teresa boots in place.). Absent: tenderness - Neurological Exam Neurological exam: Present: alert, oriented X3. Absent: motor sensory deficit - Psychiatric Psychiatric exam: Present: normal affect, normal mood - Skin Skin exam: Present: warm, dry, intact. Absent: cyanosis, diaphoresis Course - Reevaluation(s) Reevaluation #1: Discussed with Dr. Dean. He has accepted the patient for admission. Time: 17:58 Vital Signs Temperature 98.4 F 01/16/17 16:25 Pulse Rate 60 01/16/17 16:25 Respiratory Rate 24 01/16/17 16:25 Blood Pressure 109/66 01/16/17 16:25 O2 Sat by Pulse Oximetry 99 01/16/17 16:25 Temperature 98.1 F 01/16/17 17:54 Pulse Rate 70 01/16/17 17:54 Respiratory Rate 20 01/16/17 17:54 Blood Pressure 131/92 01/16/17 17:54 O2 Sat by Pulse Oximetry 100 01/16/17 17:54 Oxygen Delivery Oxygen Delivery Nasal Cannula Procedures - EJ/Peripheral Line Neck L Consent Obtained: verbal consent Time Out Performed: Yes Skin Cleansed in Sterile Fashion: Yes Size: 20 IV Secured and Dressing Applied: Yes Patient Tolerated Procedure: well, no complications Shortness of Breath/Dyspnea - Differential Diagnosis Likely: acute exacerbation of chronic obstructive airways disease, congestive heart failure, pneumonia, pulmonary embolism, pneumothorax, arrhythmia - Lab Data Lab results reviewed: Yes I reviewed the patient's lab results. Result diagrams: 01/16/17 16:57 01/16/17 16:57 Lab Results 01/16/17 01/16/17 01/16/17 Range/Units 16:57 16:57 16:57 WBC 4.7 (4.3-11.1) K/mcL RBC 3.73 L (3.82-4.97) M/mcL Hgb 10.4 L (11.5-15.4) g/dL Hct 34.8 L (35.3-44.9) % MCV 93.3 (83.0-100.0) fL MCH 27.9 L (28.0-33.3) pg MCHC 29.9 L (31.6-35.5) g/dL RDW 16.9 H (11.5-14.5) % Plt Count 130 L (140-400) K/mcL MPV 10.2 (9.4-12.4) fL Immature Gran % 0.6 (0-4) % Seg Neutrophils % 77.7 % Lymphocytes % 13.3 % Monocytes % 5.6 % Eosinophils % 2.4 % Basophils % 0.4 % Neutrophils # 3.6 (1.6-8.9) K/mcL Lymphocytes # 0.6 (0.6-4.6) K/mcL Monocytes # 0.3 (0.0-1.3) K/mcL Eosinophils # 0.1 (0.0-0.6) K/mcL Basophils # 0.0 (0.0-0.2) K/mcL PT 16.2 H (9.4-12.1) Seconds INR 1.5 Sodium 140 (136-145) mEq/L Potassium 4.5 (3.5-4.5) mEq/L Chloride 99 (98-109) mEq/L Carbon Dioxide 30 H (19-29) mEq/L BUN 21 H (7-20) mg/dL Creatinine 0.97 (0.57-1.11) mg/dL Est GFR ( Amer) > 60 (> 60) Est GFR (Non-Af Amer) 56 L (> 60) BUN/Creatinine Ratio 22 (6-26) Glucose 100 H (70-99) mg/dL Calculated Osmolality 293 (280-300) Calcium 8.4 L (8.6-10.8) mg/dL Total Bilirubin 1.3 H (0.2-1.2) mg/dL AST 19 (5-34) Units/L ALT 12 (0-55) Units/L Alkaline Phosphatase 145 H (38-126) Units/L Troponin I (0-0.03) ng/mL B-Natriuretic Peptide (0-100) pg/mL Serum Total Protein 6.7 (6.0-8.3) g/dL Albumin 3.0 L (3.5-5.0) g/dL Globulin 3.7 H (2.4-3.5) g/dL Albumin/Globulin Ratio 0.8 L (1.1-2.2) 01/16/17 01/16/17 Range/Units 16:57 16:57 WBC (4.3-11.1) K/mcL RBC (3.82-4.97) M/mcL Hgb (11.5-15.4) g/dL Hct (35.3-44.9) % MCV (83.0-100.0) fL MCH (28.0-33.3) pg MCHC (31.6-35.5) g/dL RDW (11.5-14.5) % Plt Count (140-400) K/mcL MPV (9.4-12.4) fL Immature Gran % (0-4) % Seg Neutrophils % % Lymphocytes % % Monocytes % % Eosinophils % % Basophils % % Neutrophils # (1.6-8.9) K/mcL Lymphocytes # (0.6-4.6) K/mcL Monocytes # (0.0-1.3) K/mcL Eosinophils # (0.0-0.6) K/mcL Basophils # (0.0-0.2) K/mcL PT (9.4-12.1) Seconds INR Sodium (136-145) mEq/L Potassium (3.5-4.5) mEq/L Chloride (98-109) mEq/L Carbon Dioxide (19-29) mEq/L BUN (7-20) mg/dL Creatinine (0.57-1.11) mg/dL Est GFR ( Amer) (> 60) Est GFR (Non-Af Amer) (> 60) BUN/Creatinine Ratio (6-26) Glucose (70-99) mg/dL Calculated Osmolality (280-300) Calcium (8.6-10.8) mg/dL Total Bilirubin (0.2-1.2) mg/dL AST (5-34) Units/L ALT (0-55) Units/L Alkaline Phosphatase (38-126) Units/L Troponin I 0.01 (0-0.03) ng/mL B-Natriuretic Peptide 1603 H (0-100) pg/mL Serum Total Protein (6.0-8.3) g/dL Albumin (3.5-5.0) g/dL Globulin (2.4-3.5) g/dL Albumin/Globulin Ratio (1.1-2.2) - Radiology Data Radiology results reviewed: Yes I reviewed the patient's radiology results. Impressions Chest X-Ray 01/16/17 16:28 IMPRESSION: Limited chest with low lung volumes. Cardiomegaly and probable early CHF. D/ / Philippe Felder MD / Philippe Felder MD Interpreting Provider: Philippe Felder MD - EKG Data EKG attestation: Yes I reviewed and interpreted this EKG. EKG results narrative: Fibrillation, rate of 59, age indeterminate septal infarct, nonspecific T-wave flattening. Rhythm strip shows atrial fibrillation with a rate of 59, QRS of 86 ms with no other ectopy as interpreted by me. Compared to a tracing dated 01/10/17, not significantly changed.
[2017-01-16 17:06] LABS: Basophils % 0.4 %; Eosinophils # 0.1 K/mcL (0.0-0.6); Eosinophils % 2.4 %; Hematocrit 34.8 % (35.3-44.9); Hemoglobin 10.4 g/dL (11.5-15.4); Immature Granulocytes % 0.6 % (0-4); Lymphocytes # 0.6 K/mcL (0.6-4.6); Lymphocytes % 13.3 %; Mean Corpuscular HGB Conc 29.9 g/dL (31.6-35.5); Mean Corpuscular Hemoglobin 27.9 pg (28.0-33.3); Mean Corpuscular Volume 93.3 fL (83.0-100.0); Mean Platelet Volume 10.2 fL (9.4-12.4); Monocytes # 0.3 K/mcL (0.0-1.3); Monocytes % 5.6 %; Neutrophils # 3.6 K/mcL (1.6-8.9); Platelet Count 130 K/mcL (140-400); Red Blood Count 3.73 M/mcL (3.82-4.97); Red Cell Distribution Width 16.9 % (11.5-14.5); Segmented Neutrophils % 77.7 %
[2017-01-16 17:11] LABS: INR 1.5; Prothrombin Time 16.2 Seconds (9.4-12.1)
[2017-01-16 17:22] LABS: Alanine Aminotransferase 12 Units/L (0-55); Albumin/Globulin Ratio 0.8 (1.1-2.2); Alkaline Phosphatase 145 Units/L (38-126); Aspartate Amino Transferase 19 Units/L (5-34); BUN/Creatinine Ratio 22 (6-26); Bilirubin,Total 1.3 mg/dL (0.2-1.2); Blood Urea Nitrogen 21 mg/dL (7-20); Calcium 8.4 mg/dL (8.6-10.8); Carbon Dioxide 30 mEq/L (19-29); Chloride 99 mEq/L (98-109); Globulin 3.7 g/dL (2.4-3.5); Glucose 100 mg/dL (70-99); Osmolality,Calculated 293 (280-300); Potassium 4.5 mEq/L (3.5-4.5); Sodium 140 mEq/L (136-145); Total Protein 6.7 g/dL (6.0-8.3); eGFR For African Americans > 60 (> 60); eGFR For Non-African Americans 56 (> 60)
[2017-01-16] MEDS ORDERED: Naloxone 0.4 MG/ML INJ IVP PRN (18:51)
[2017-01-16] MEDS ORDERED: Nitroglycerin 0.4 MG TAB.SUBL SL SCH (18:51)
[2017-01-16] MEDS ORDERED: Loratadine 10 MG TABLET PO PRN (18:51)
[2017-01-16] MEDS ORDERED: Nitroglycerin 0.4 MG TAB.SUBL SL PRN (19:57)
[2017-01-16] MEDS: Gabapentin 300 MG CAPSULE PO SCH (20:15)
[2017-01-16] MEDS: Bumetanide 1 MG/4 ML VIAL IVP SCH (20:15)
[2017-01-16] MEDS: *HR* HYDROcodone/Acet 7.5/325 mg TABLET PO PRN (21:23)
[2017-01-17] MEDS: *HR* HYDROcodone/Acet 7.5/325 mg TABLET PO PRN ×2 (05:43→20:38)
[2017-01-17] MEDS: *HR* Enoxaparin 40 MG/0.4 ML SYRINGE SQ SCH (05:43)
[2017-01-17] MEDS: Bumetanide 1 MG/4 ML VIAL IVP SCH ×2 (08:27→18:14)
[2017-01-17] MEDS: Isosorbide MONOnitrate (24 HR) 60 MG TAB.ER.24H PO SCH (08:27)
[2017-01-17] MEDS: Gabapentin 300 MG CAPSULE PO SCH ×2 (08:28→20:38)
[2017-01-17] MEDS: Diltiazem CD (24hr) 120 MG CAPSULE PO SCH (08:28)
[2017-01-17] MEDS ORDERED: Folic Acid 1 MG TABLET PO SCH (09:00)
--- NOTE | 2017-01-17 09:54 | Internal Med History&Physical ---
Date of Encounter: 01/17/17 Time of Encounter: 09:25 Assessment and Plan (1) Chronic diastolic CHF (congestive heart failure) Current visit: No Status: Acute She has been started on IV Bumex. Isosorbide dose has been increased to 60 mg daily. Continue Coreg. Will add Lanoxin. (2) A-fib Current visit: No Status: Chronic Continue Cardizem and Coreg. Will add Lanoxin. Continue Plavix for CVA prophylaxis. Qualifiers: Atrial fibrillation type: chronic Qualified Code(s): I48.2 - Chronic atrial fibrillation (3) DM type 2 (diabetes mellitus, type 2) Current visit: No Status: Chronic Hemoglobin A1c was 5.9% on 01/11/2017. I do not see any diabetic medication on her home med list. Qualifiers: Diabetes mellitus complication status: without complication Diabetes mellitus care home insulin use: without termite exterminator helper use Qualified Code(s): E11.9 - Type 2 diabetes mellitus without complications (4) Anemia Current visit: No Status: Acute No factor deficiency noted on anemia testing last week. We will continue to monitor CBC. Qualifiers: Anemia type: unspecified type Qualified Code(s): D64.9 - Anemia, unspecified (5) High blood pressure Current visit: No Status: Chronic Continue Cardizem, isosorbide, diuretics, and Coreg. Qualifiers: Hypertension type: essential hypertension Qualified Code(s): I10 - Essential (primary) hypertension Internal Medicine - H&P: HPI Chief complaint: Dyspnea Admitted From: Home Plans for Post Hospital Care: Home History of present illness: Ms. Castaneda is a 76 year old female came to emergency room stating she had progressive dyspnea since being discharged from [facility] on January 11. She admits she did not take Bumex as prescribed at discharge. She also did not decrease her gabapentin or increase her isosorbide. She was evaluated emergency room and felt to have exacerbation of CHF. She was admitted to [facility] floor for ongoing care needs. Her cardiovascular history is significant for heart failure with preserved ejection fraction. Echocardiogram done 10/17/2016 showed LVEF 65%. Echocardiogram June 2016 showed concentric LVH with the interventricular septum and posterior wall thickness measurements 1.4 cm each. There was biatrial enlargement with left atrial size recorded 4.5 cm. There was mild to moderate AI, mild , mild MR, and severe TR. The estimated RVSP was elevated at 52-62 mmHg. She had questionable NSTEMI June 2014 at [facility]. Heart catheter showed moderate coronary artery disease without intervention done. She has chronic atrial fibrillation and is maintained on Plavix since she had GI bleed on Xarelto. She denies DVT or pulmonary embolus. She has history of hypertension. Past Med Surg Social Fam HX - Past Medical History Medical history: arthritis, atrial fibrillation, cardiomyopathy, CHF, GERD, GI bleed, hypertension, myocardial infarction, TIA, other Psychiatric history: depression - Past Surgical History Surgical History: - Social History Smoking Status: Never smoker Smokeless Tobacco Status: No Alcohol use: none Drug use: none - Family History Mother Living Status: Hx Family GI Disorders: Yes Internal Medicine - H&P: Meds Carvedilol [Coreg] 6.25 mg PO BID 01/09/17 [History] Citalopram Hydrobromide [Citalopram HBr] 10 mg PO DAILY 01/09/17 [History] Clopidogrel [Plavix] 75 mg PO DAILY 01/09/17 [History] Diltiazem HCl [Diltiazem ER] 120 mg PO QAM 01/09/17 [History] Ferrous Sulfate 325 mg PO DAILY 01/09/17 [History] Folic Acid 1 mg PO DAILY 01/09/17 [History] HYDROcodone/Acet 7.5/325 mg [[place] 7.5-325 mg] 1 tab PO Q6H 01/09/17 [History] Nitroglycerin [Nitrostat] 0.4 mg SL Q5-6MIN PRN 01/09/17 [History] Pantoprazole Sodium [Protonix] 40 mg PO BID 01/09/17 [History] Potassium Chloride [K-Tab ER] 20 meq PO DAILY 01/09/17 [History] Ropinirole HCl [Requip] 3 mg PO DAILY 01/09/17 [History] Bumetanide [Bumex] 2 mg PO DAILY #60 tablet 01/11/17 [Rx] Gabapentin [Neurontin] 300 mg PO BID #0 01/11/17 [Rx] Isosorbide MONOnitrate (24 HR) [Imdur] 60 mg PO DAILY #30 tab.er.24h 01/11/17 [ Rx] Loratadine [Allergy Relief] 10 mg PO DAILY PRN #0 01/11/17 [Rx] Allergies codeine [From Tylenol-Codeine #3] Adverse Reaction (Verified 09/02/15 18:03) Vomiting All Systems PM: A 10-system review of systems was performed and is negative for pertinent findings except as documented above in the HPI. Review of systems: Review of systems from her recent [facility] stay were reviewed and revised as below. Gen.: She states her weight is increased 10-20 pounds in the past year Cardiovascular: As per history of present illness Respiratory: She is a lifelong nonsmoker but has been diagnosed with COPD and wears oxygen 01/01 at home at 3 L/m GI: She denies disorders of her liver gallbladder or exocrine pancreas. She had GI bleed from taking Xarelto several years ago. She has rare GERD symptoms. : No history of hematuria dysuria or kidney stones Neurologic: She states she had a "mini stroke" in the past but no permanent neurologic deficit. She has history of RLS. She denies seizures. Endocrine: She was diagnosed with borderline DM 2 in the past. Hemoglobin A1c was 6.4% on 07/05/2014. She denies thyroid disease or hyperlipidemia Hematology/oncology: She denies blood disorders or cancers. She is anemic with anemia testing last hospitalization showing iron 46, transferrin saturation 16% , transferrin 209, ferritin 234, B12 566, and folate 16.8. Psychiatric: She has depression but denies anxiety or other mental health issues Musk skeletal: She has DJD but denies gout or osteoporosis. - Constitutional Vitals: Temp Pulse Resp BP Pulse Ox 98.9 F 89 20 149/85 99 01/17/17 06:58 01/17/17 06:58 01/17/17 06:58 01/17/17 06:58 01/17/17 06:58 Exam: Gen.: She is a well-developed well-nourished female lying in bed who appears in minimal distress at present time HEENT: Head is atraumatic and normocephalic. Eyes: EOMI. There is no scleral icterus. Mouth: Mucosa is dry Neck: She has an IV in the external jugular vein on the left side. There is no thyromegaly or adenopathy noted. Heart: Irregularly irregular without murmurs or gallops. Tones are soft. Lungs: No wheezes or crackles are heard. Abdomen: She is a large abdomen. It is nontender to palpation. No masses or guarding noted. Extremities: She has 2-3+ edema in the feet and lower legs bilaterally. Dorsalis pedis and posterior tibial pulses are not palpable. She has DJD changes of her hands. Neurologic: Mental status: She is talkative and a good historian. Cranial nerves: Smile is symmetric. Forehead wrinkles bilaterally. Tongue protrudes midline. EOMI. Motor: There is no pronator drift. Cerebellar: Finger to nose is intact bilaterally. Skin: Warm and dry Internal Med - H&P Results - Labs CBC & Chem 7: 01/16/17 16:57 01/16/17 16:57 Labs: Cardiac Enzymes 01/16/17 01/17/17 01/17/17 Range/Units 23:02 05:02 08:10 Troponin I 0.01 0.02 0.02 (0-0.03) ng/mL
[2017-01-17] MEDS: *HR* Digoxin 0.125 MG TABLET PO SCH (13:07)
--- NOTE | 2017-01-17 20:19 | Electrocardiograph Report ---
[address] [place], [place] [address] Test Date: 2017-01-16 Pat Name: Elizabeth Castaneda Department: [id number] Room: [facility] Gender: F Solar Installation Helper: : 1940 Requested By: Trenton Chapa Order Number: [id number] Reading MD: Yehuda Prajapati MD Measurements Intervals [place] Rate: 59 P: 0 TX: 173 QRS: 80 QRSD: 86 T: 11 QT: 454 QTc: 452 Interpretive Statements ATRIAL FIBRILLATION WITH SLOW RESPONSE Electronically Signed On 01-17-2017 20:18:09 EDT by Yehuda Prajapati MD
[2017-01-18] MEDS: *HR* Enoxaparin 40 MG/0.4 ML SYRINGE SQ SCH (04:24)
[2017-01-18] MEDS: *HR* HYDROcodone/Acet 7.5/325 mg TABLET PO PRN ×2 (04:24→17:33)
[2017-01-18 05:35] LABS: Basophils % 0.1 %; Eosinophils % 0.1 %; Hematocrit 35.1 % (35.3-44.9); Hemoglobin 10.4 g/dL (11.5-15.4); Immature Granulocytes % 0.5 % (0-4); Lymphocytes # 0.6 K/mcL (0.6-4.6); Lymphocytes % 4.5 %; Mean Corpuscular HGB Conc 29.6 g/dL (31.6-35.5); Mean Corpuscular Hemoglobin 27.4 pg (28.0-33.3); Mean Corpuscular Volume 92.6 fL (83.0-100.0); Mean Platelet Volume 10.6 fL (9.4-12.4); Monocytes # 0.5 K/mcL (0.0-1.3); Monocytes % 3.8 %; Neutrophils # 12.3 K/mcL (1.6-8.9); Platelet Count 127 K/mcL (140-400); Red Blood Count 3.79 M/mcL (3.82-4.97); Red Cell Distribution Width 16.9 % (11.5-14.5)
[2017-01-18 06:02] LABS: BUN/Creatinine Ratio 20 (6-26); Blood Urea Nitrogen 19 mg/dL (7-20); Calcium 8.5 mg/dL (8.6-10.8); Carbon Dioxide 32 mEq/L (19-29); Chloride 98 mEq/L (98-109); Glucose 138 mg/dL (70-99); Osmolality,Calculated 294 (280-300); Potassium 4.1 mEq/L (3.5-4.5); Sodium 140 mEq/L (136-145); eGFR For African Americans > 60 (> 60); eGFR For Non-African Americans 58 (> 60)
[2017-01-18 07:01] LABS: Platelet Estimate Normal (Normal)
--- NOTE | 2017-01-18 09:32 | Internal Med Progress Note ---
Date of Encounter: 01/18/17 Time of Encounter: 09:20 - Assessment and plan (1) Chronic diastolic CHF (congestive heart failure) Current Visit: No Status: Acute Assessment and plan: January 18. BN peptide slightly higher. Continue Bumex, isosorbide, Coreg, and Lanoxin. (2) A-fib Current Visit: No Status: Chronic Assessment and plan: January 18. Continue Cardizem, Coreg, and Lanoxin Qualifiers: Atrial fibrillation type: chronic Qualified Code(s): I48.2 - Chronic atrial fibrillation (3) DM type 2 (diabetes mellitus, type 2) Current Visit: No Status: Chronic Assessment and plan: January 18. Diet controlled. Qualifiers: Diabetes mellitus complication status: without complication Diabetes mellitus penitentiary insulin use: without penitentiary use Qualified Code(s): E11.9 - Type 2 diabetes mellitus without complications (4) Anemia Current Visit: No Status: Acute Assessment and plan: January 18. Monitor CBC as needed. Qualifiers: Anemia type: unspecified type Qualified Code(s): D64.9 - Anemia, unspecified (5) High blood pressure Current Visit: No Status: Chronic Assessment and plan: January 18. Continue Cardizem, isosorbide, Bumex, and Coreg Qualifiers: Hypertension type: essential hypertension Qualified Code(s): I10 - Essential (primary) hypertension (6) Neutrophilic leukocytosis Current Visit: Yes Status: Acute Assessment and plan: January 18. Will order chest CT to follow-up on abnormalities from June 2016 CT. - Subjective Interval history: January 18. She has no new complaints. She is still dyspneic. - Constitutional Vitals: Temp Pulse Resp BP Pulse Ox 99.0 F 84 18 126/77 98 01/18/17 06:59 01/18/17 06:59 01/18/17 06:59 01/18/17 06:59 01/18/17 00:03 Exam: She is sitting on the side of bed resting fairly comfortably. Heart is irregularly irregular. Lungs show no wheezes or crackles. I reviewed her medications and lab results. Internal Medicine: Result - Labs CBC & Chem 7: 01/18/17 04:42 01/18/17 04:42 Labs: Short CBC 01/18/17 Range/Units 04:42 WBC 13.5 H D (4.3-11.1) K/mcL Hgb 10.4 L (11.5-15.4) g/dL Hct 35.1 L (35.3-44.9) % Plt Count 127 L (140-400) K/mcL Neutrophils # 12.3 H (1.6-8.9) K/mcL BMP 01/18/17 04:42 Sodium 140 Potassium 4.1 Chloride 98 Carbon Dioxide 32 H BUN 19 Creatinine 0.94 Glucose 138 H Calcium 8.5 L - ABG Interpretation ABG results: PT/INR, D-dimer PT 16.2 Seconds (9.4-12.1) H 01/16/17 16:57 Consult Discharge Plan - Plan Referrals: Mallika Wooten, MOLDING ENGINEER [Primary Care Provider] - 1 week
[2017-01-18] MEDS: Diltiazem CD (24hr) 120 MG CAPSULE PO SCH (10:08)
[2017-01-18] MEDS: Gabapentin 300 MG CAPSULE PO SCH ×2 (10:08→20:11)
[2017-01-18] MEDS: *HR* Digoxin 0.125 MG TABLET PO SCH (10:09)
[2017-01-18] MEDS: Isosorbide MONOnitrate (24 HR) 60 MG TAB.ER.24H PO SCH (10:10)
[2017-01-18] MEDS: Bumetanide 1 MG/4 ML VIAL IVP SCH ×2 (10:11→17:34)
[2017-01-19] MEDS: *HR* HYDROcodone/Acet 7.5/325 mg TABLET PO PRN ×3 (00:48→22:53)
[2017-01-19] MEDS: *HR* Enoxaparin 40 MG/0.4 ML SYRINGE SQ SCH (05:38)
[2017-01-19 06:04] LABS: Basophils % 0.4 %; Eosinophils # 0.1 K/mcL (0.0-0.6); Hemoglobin 9.8 g/dL (11.5-15.4); Immature Granulocytes % 0.6 % (0-4); Lymphocytes # 0.6 K/mcL (0.6-4.6); Lymphocytes % 11.5 %; Mean Corpuscular HGB Conc 29.7 g/dL (31.6-35.5); Mean Corpuscular Hemoglobin 27.9 pg (28.0-33.3); Mean Platelet Volume 10.6 fL (9.4-12.4); Monocytes # 0.4 K/mcL (0.0-1.3); Monocytes % 6.9 %; Neutrophils # 4.2 K/mcL (1.6-8.9); Platelet Count 110 K/mcL (140-400); Red Blood Count 3.51 M/mcL (3.82-4.97); Red Cell Distribution Width 16.7 % (11.5-14.5); Segmented Neutrophils % 78.6 %
[2017-01-19 06:25] LABS: BUN/Creatinine Ratio 26 (6-26); Blood Urea Nitrogen 23 mg/dL (7-20); Calcium 8.4 mg/dL (8.6-10.8); Carbon Dioxide 33 mEq/L (19-29); Chloride 99 mEq/L (98-109); Glucose 122 mg/dL (70-99); Osmolality,Calculated 297 (280-300); Potassium 4.1 mEq/L (3.5-4.5); Sodium 141 mEq/L (136-145); eGFR For African Americans > 60 (> 60); eGFR For Non-African Americans > 60 (> 60)
[2017-01-19] MEDS: Bumetanide 1 MG/4 ML VIAL IVP SCH ×2 (08:45→17:26)
[2017-01-19] MEDS: Isosorbide MONOnitrate (24 HR) 60 MG TAB.ER.24H PO SCH (08:45)
[2017-01-19] MEDS: Diltiazem CD (24hr) 120 MG CAPSULE PO SCH (08:45)
[2017-01-19] MEDS: Gabapentin 300 MG CAPSULE PO SCH ×2 (08:46→19:54)
[2017-01-19] MEDS: *HR* Digoxin 0.125 MG TABLET PO SCH (09:05)
--- NOTE | 2017-01-19 09:59 | Internal Med Progress Note ---
Date of Encounter: 01/19/17 Time of Encounter: 09:50 - Assessment and plan (1) Chronic diastolic CHF (congestive heart failure) Current Visit: No Status: Acute Assessment and plan: January 18. BN peptide slightly higher. Continue Bumex, isosorbide, Coreg, and Lanoxin. (2) A-fib Current Visit: No Status: Chronic Assessment and plan: January 18. Continue Cardizem, Coreg, and Lanoxin Qualifiers: Atrial fibrillation type: chronic Qualified Code(s): I48.2 - Chronic atrial fibrillation (3) DM type 2 (diabetes mellitus, type 2) Current Visit: No Status: Chronic Assessment and plan: January 18. Diet controlled. Qualifiers: Diabetes mellitus complication status: without complication Diabetes mellitus half-way insulin use: without terminal make up operator use Qualified Code(s): E11.9 - Type 2 diabetes mellitus without complications (4) Anemia Current Visit: No Status: Acute Assessment and plan: January 18. Monitor CBC as needed. Qualifiers: Anemia type: unspecified type Qualified Code(s): D64.9 - Anemia, unspecified (5) High blood pressure Current Visit: No Status: Chronic Assessment and plan: January 18. Continue Cardizem, isosorbide, Bumex, and Coreg Qualifiers: Hypertension type: essential hypertension Qualified Code(s): I10 - Essential (primary) hypertension (6) Neutrophilic leukocytosis Current Visit: Yes Status: Acute Assessment and plan: January 18. Will order chest CT to follow-up on abnormalities from June 2016 CT. January 19. Resolved. Chest CT showed a single left upper lobe opacity area with nodular morphology. There was a recommendation for PET-CT scan. This can be done as an outpatient. Anticipate discharge home tomorrow. - Subjective Interval history: January 18. She has no new complaints. She is still dyspneic. January 19. She has no new complaints and feels better. She denies dyspnea. - Constitutional Vitals: Temp Pulse Resp BP Pulse Ox 97.7 F 78 18 121/70 99 01/19/17 07:29 01/19/17 07:29 01/19/17 07:29 01/19/17 07:29 01/19/17 09:47 Exam: She is resting comfortably in bed. Her affect is overall cheerful. Her lower legs are wrapped with elastic wrap. Reviewed her medications and lab results. Internal Medicine: Result - Labs CBC & Chem 7: 01/19/17 05:26 01/19/17 05:26 Labs: Short CBC 01/19/17 Range/Units 05:26 WBC 5.4 D (4.3-11.1) K/mcL Hgb 9.8 L (11.5-15.4) g/dL Hct 33.0 L (35.3-44.9) % Plt Count 110 L (140-400) K/mcL Neutrophils # 4.2 (1.6-8.9) K/mcL BMP 01/19/17 05:26 Sodium 141 Potassium 4.1 Chloride 99 Carbon Dioxide 33 H BUN 23 H Creatinine 0.87 Glucose 122 H Calcium 8.4 L - ABG Interpretation ABG results: PT/INR, D-dimer PT 16.2 Seconds (9.4-12.1) H 01/16/17 16:57 - Impressions Impressions Chest CT 01/18/17 09:36 IMPRESSION: 1. Stable decreased mediastinal lymphadenopathy. 2. Dense consolidation within the right lower lobe has resolved. 3. There is at least one focal area of opacity within the left upper lobe which has a nodular morphology, and appears increased in size when compared to the previous exam. Further evaluation with PET-CT is recommended given its size. D/ / 01/18/2017 16:39:01 Forrest Aldrich MD / walter Interpreting Provider: Forrest Aldrich MD Consult Discharge Plan - Plan Referrals: Mallika Wooten, BIG DATA ANALYTICS LEAD [Primary Care Provider] - 1 week
[2017-01-20] MEDS: *HR* Enoxaparin 40 MG/0.4 ML SYRINGE SQ SCH (05:30)
[2017-01-20 05:46] LABS: Bilirubin,Urine Negative (Negative); Blood,Urine Negative (Negative); Clarity,Urine Clear (Clear); Color,Urine Dark Yellow (Yellow); Glucose,Urine (UA) Normal (Normal); Ketones,Urine Negative (Negative); Leukocyte Esterase,Urine Trace (Negative); Nitrite,Urine Negative (Negative); PH,Urine 5.5 pH Units (5.0-8.0); Protein,Urine Negative (Neg-Trace); Specific Gravity,Urine 1.015 (1.010-1.025)
[2017-01-20 06:25] LABS: RBC,Urine 0-3 per hpf (0-3); Squamous Epithelial Cell,Urine Few per lpf (None-Few)
[2017-01-20 06:26] LABS: Bacteria,Urine Few per hpf (None-Few); Hyaline Casts,Urine Few per lpf (None-Few)
--- NOTE | 2017-01-20 08:42 | Discharge Summary ---
Date of Encounter: 01/20/17 Time of Encounter: 08:35 - Discharge Diagnosis (1) Chronic diastolic CHF (congestive heart failure) Priority: Primary Status: Acute (2) A-fib Priority: Secondary Status: Chronic Qualifiers: Atrial fibrillation type: chronic Qualified Code(s): I48.2 - Chronic atrial fibrillation (3) DM type 2 (diabetes mellitus, type 2) Priority: Secondary Status: Chronic Qualifiers: Diabetes mellitus complication status: without complication Diabetes mellitus longterm insulin use: without rat exterminator use Qualified Code(s): E11.9 - Type 2 diabetes mellitus without complications (4) Anemia Priority: Secondary Status: Acute Qualifiers: Anemia type: unspecified type Qualified Code(s): D64.9 - Anemia, unspecified (5) High blood pressure Priority: Secondary Status: Chronic Qualifiers: Hypertension type: essential hypertension Qualified Code(s): I10 - Essential (primary) hypertension (6) Neutrophilic leukocytosis Priority: Secondary Status: Resolved - Discharge Medications Prescriptions: Digoxin [Lanoxin] 0.125 mg PO DAILY #30 tab Home Medications: Carvedilol [Coreg] 6.25 mg PO BID 01/09/17 [History] Citalopram Hydrobromide [Citalopram HBr] 10 mg PO DAILY 01/09/17 [History] Clopidogrel [Plavix] 75 mg PO DAILY 01/09/17 [History] Diltiazem HCl [Diltiazem ER] 120 mg PO QAM 01/09/17 [History] Ferrous Sulfate 325 mg PO DAILY 01/09/17 [History] Folic Acid 1 mg PO DAILY 01/09/17 [History] HYDROcodone/Acet 7.5/325 mg [[place] 7.5-325 mg] 1 tab PO Q6H 01/09/17 [History] Nitroglycerin [Nitrostat] 0.4 mg SL Q5-6MIN PRN 01/09/17 [History] Pantoprazole Sodium [Protonix] 40 mg PO BID 01/09/17 [History] Potassium Chloride [K-Tab ER] 20 meq PO DAILY 01/09/17 [History] Ropinirole HCl [Requip] 3 mg PO DAILY 01/09/17 [History] Bumetanide [Bumex] 2 mg PO DAILY #60 tablet 01/11/17 [Rx] Gabapentin [Neurontin] 300 mg PO BID #0 01/11/17 [Rx] Isosorbide MONOnitrate (24 HR) [Imdur] 60 mg PO DAILY #30 tab.er.24h 01/11/17 [ Rx] Loratadine [Allergy Relief] 10 mg PO DAILY PRN #0 01/11/17 [Rx] Digoxin [Lanoxin] 0.125 mg PO DAILY #30 tab 01/20/17 [Rx] Allergies/Adverse Reactions: Allergies codeine [From Tylenol-Codeine #3] Adverse Reaction (Verified 09/02/15 18:03) Vomiting Procedures/tests Complete & Pending: Procedures Performed prior 72 hours Category Date Time Status CT chest wo con [CT] Routine Cat Scan 01/18/17 09:36 Completed Date of admission: 01/17/17 15:24 Primary care physician: Mallika Wooten CNP Consults: 01/18/17 10:49 Consult to Occupational Therapy [CONS] Routine Comment: Evaluate, develop and implement POC Reason for Consult: weakness Consult to Physical Therapy [CONS] Routine Comment: Evaluate, develop and implement POC Reason for Consult: weakness - Patient Status Disposition: Home Health Service Condition: Good Functional capacity at discharge: uses cane/walker Overall status at discharge: patient is progressing back to baseline - Discharge Instructions Follow Up With: Mallika Wooten CNP [Primary Care Provider] - 1 week - Diet and Activity Activity: resume usual activities as tolerated Diet: advance to your usual diet Hospital course: Ms. Castaneda is a 76 year old female who came to emergency room stating she had progressive dyspnea since being discharged from [facility] on January 11. She admits she did not take Bumex as prescribed at discharge. She also did not decrease her gabapentin or increase her isosorbide. She was evaluated emergency room and felt to have exacerbation of CHF. She was admitted to [facility] floor for ongoing care needs. Initial orders were written by the emergency room physician. I saw her on January 17 and performed the history and physical. She was started back on Bumex and isosorbide. I added Lanoxin. She had good clinical response with decrease in BN peptide to 1299. Her dyspnea lessened and on January 20 she felt stable for discharge home which I felt was reasonable. She will continue with her current medication regimen including Lanoxin at discharge. She will follow with her PCP Mallika Wooten CNP within [address] was done to follow-up on abnormalities seen on June [address]. There was a focal area of opacity in the left upper lobe with nodular morphology appearing increased in size compared to June 2016 CT. Further evaluation with PET-CT was recommended. Her PCP can order the recommended study and further workup as needed. - Time Spent with Patient Total time spent providing and/or coordinating discharge services: - Constitutional Vitals: Temp Pulse Resp BP Pulse Ox 98.4 F 78 20 134/81 95 01/20/17 06:17 01/20/17 06:17 01/20/17 06:17 01/20/17 06:17 01/20/17 06:17
--- NOTE | 2017-01-20 08:50 | Physician Discharge Referral ---
Home Health/Hosp Referral Info Transfer to: Home Health Attending Provider: Jermaine Provider in Charge Post Discharge: PCP (Mallika Wooten CNP) - Diagnosis (1) Chronic diastolic CHF (congestive heart failure) Priority: Primary Status: Acute (2) A-fib Priority: Secondary Status: Chronic (3) DM type 2 (diabetes mellitus, type 2) Priority: Secondary Status: Chronic (4) Anemia Priority: Secondary Status: Acute (5) High blood pressure Priority: Secondary Status: Chronic (6) Neutrophilic leukocytosis Priority: Secondary Status: Resolved - Respiratory Orders Oxygen / L per min (3 L/m 01/01) Smoking Cessation: Smoking cessation has been advised. For more information, call the [place] Tobacco Quit Line at 5-701-CHXV-NOW. - Diet/Nutrition Diet/Nutrition Orders: No Concentrated Sweets - Activity Activity Orders: Walker - Services Needed Following services are medically necessary services: Nursing, Home Health Aide, Physical Therapy, Occupational Therapy - Transfer Medications Prescriptions: Digoxin [Lanoxin] 0.125 mg PO DAILY #30 tab Home Medications: Carvedilol [Coreg] 6.25 mg PO BID 01/09/17 [History] Citalopram Hydrobromide [Citalopram HBr] 10 mg PO DAILY 01/09/17 [History] Clopidogrel [Plavix] 75 mg PO DAILY 01/09/17 [History] Diltiazem HCl [Diltiazem ER] 120 mg PO QAM 01/09/17 [History] Ferrous Sulfate 325 mg PO DAILY 01/09/17 [History] Folic Acid 1 mg PO DAILY 01/09/17 [History] HYDROcodone/Acet 7.5/325 mg [[place] 7.5-325 mg] 1 tab PO Q6H 01/09/17 [History] Nitroglycerin [Nitrostat] 0.4 mg SL Q5-6MIN PRN 01/09/17 [History] Pantoprazole Sodium [Protonix] 40 mg PO BID 01/09/17 [History] Potassium Chloride [K-Tab ER] 20 meq PO DAILY 01/09/17 [History] Ropinirole HCl [Requip] 3 mg PO DAILY 01/09/17 [History] Bumetanide [Bumex] 2 mg PO DAILY #60 tablet 01/11/17 [Rx] Gabapentin [Neurontin] 300 mg PO BID #0 01/11/17 [Rx] Isosorbide MONOnitrate (24 HR) [Imdur] 60 mg PO DAILY #30 tab.er.24h 01/11/17 [ Rx] Loratadine [Allergy Relief] 10 mg PO DAILY PRN #0 01/11/17 [Rx] Digoxin [Lanoxin] 0.125 mg PO DAILY #30 tab 01/20/17 [Rx] Allergies/Adverse Reactions: Allergies codeine [From Tylenol-Codeine #3] Adverse Reaction (Verified 09/02/15 18:03) Vomiting Certification: Further, I certify that my clinical findings support that this patient is homebound (i.e. absences from home require considerable and taxing effort and are for medical reasons or evangelical services or infrequently or short duration when for other reasons) because: Homebound Reason: Leaving home requires considerable and taxing effort due to condition (Extremely limited mobility due to heart failure and DJD.) Attestation: My signature below is to certify that this patient is under my care and that I, or nurse practitioner, or a physician's office services assistant working with me, has a face-to -face encounter with this patient.
[2017-01-20] MEDS: Bumetanide 1 MG/4 ML VIAL IVP SCH (09:48)
[2017-01-20 10:17] VITALS: BP 157/87
[2017-01-20] MEDS: Diltiazem CD (24hr) 120 MG CAPSULE PO SCH (10:18)
[2017-01-20] MEDS: Isosorbide MONOnitrate (24 HR) 60 MG TAB.ER.24H PO SCH (10:19)
[2017-01-20] MEDS: Gabapentin 300 MG CAPSULE PO SCH (10:20)
[2017-01-20] MEDS: *HR* HYDROcodone/Acet 7.5/325 mg TABLET PO PRN (10:21)
[2017-01-20] MEDS: *HR* Digoxin 0.125 MG TABLET PO SCH (10:24)
== END 2017-01-20 10:59 | disposition home health service (06) | DRG 293 ==
LOC: INPPIK 16:23 → EMEROOPIK 16:23 → INPPIK 18:45
PROVIDERS: ADMIT Internal Medicine; ATTEND Internal Medicine

== ENCOUNTER 2017-06-27 15:15 | Inpatient (IN) ==
--- NOTE | 2017-06-27 15:35 | Emergency Department Note ---
Disposition Clinical Impression: CAD (coronary artery disease), Anemia, Hyperkalemia, CHF exacerbation, COPD exacerbation Disposition: Admitted As Inpatient Condition: Fair Time of Disposition: 17:03 SOB HPI - General Chief Complaint: ED Shortness of Breath/Dyspnea Stated Complaint: SHORTNESS OF BREATH Time Seen by Provider: 06/27/17 15:30 Source: patient, EMS Mode of arrival: EMS Limitations: no limitations Nursing Notes Reviewed: Yes Vital Signs Reviewed: Yes - History of Present Illness Elderly female brought in from home having recently been discharged from [facility], [place], operated by [facility] is into the emergency room after being found at home with O2 sats in the 60% she apparently is a hospice patient but is a full code family does not we will discuss CODE STATUS patient apparently is here they do not feel that they can care for her anymore at home because of her dilatation hypoxia confusion recently hospitalized for pneumonia at the nursing care facility just recently had pneumonia as an underlying history of congestive heart failure patient that does not know why she is here and has no understanding she said except for she was told that she was hypoxic denies chest pain chest pressure palpitations she says I was short of breath but no more than usual she denies any lightheadedness dizziness family tells me that she has had diarrhea she has had no cough or cold incident since recently been placed on Zithromax Pt Subjective Complaint: shortness of breath Onset (ago): unknown Context: recent illness Severity: moderate Consistency/Duration: constant Improves with: oxygen Worsens with: exertion Known history of: COPD, congestive heart failure, recurrent pneumonia Associated symptoms: Reports: cough, other (confusion per step daughter a bed side). Denies: chest pain, pain with inspiration, fever, wheezing, sputum production, orthopnea, lower extremity pain, polyuria, polydipsia, parasthesias , palpitations, hemoptysis, diaphoresis, nausea/vomiting, syncope, rash, sense of impending doom Treatment prior to arrival: oxygen, bronchodilator - Related Data Home Medications Medication Instructions Recorded Confirmed Citalopram Hydrobromide 10 mg PO DAILY 01/09/17 06/01/17 [Citalopram HBr] Clopidogrel [Plavix] 75 mg PO DAILY 01/09/17 06/01/17 Diltiazem HCl [Diltiazem ER] 120 mg PO QAM 01/09/17 06/01/17 Ferrous Sulfate 325 mg PO DAILY 01/09/17 06/01/17 Folic Acid 1 mg PO DAILY 01/09/17 06/01/17 Nitroglycerin [Nitrostat] 0.4 mg SL Q5M PRN 01/09/17 06/01/17 Pantoprazole Sodium [Protonix] 40 mg PO BID 01/09/17 06/01/17 Ropinirole HCl [Requip] 3 mg PO HS 01/09/17 06/01/17 Isosorbide MONOnitrate (24 HR) 60 mg PO DAILY 03/09/17 06/01/17 [Imdur] Previous Rx's Medication Instructions Recorded Aspirin 81 mg PO DAILY tab.chew 03/12/17 Carvedilol [Coreg] 6.25 mg PO BIDWM tablet 03/22/17 Albuterol Sulfate [Albuterol 2 puff IH Q4H PRN #1 inhaler 04/10/17 Inhaler] Fluticasone/Salmeterol [Advair 1 each IH BID #60 blst.w.dev 04/11/17 250-50 Diskus] Bumetanide [Bumex] 2 mg PO BID #60 tablet 04/30/17 Acetaminophen [Tylenol] 650 mg PO Q6HR PRN tablet 06/06/17 Docusate [Colace] 100 mg PO BID PRN capsule 06/06/17 Gabapentin [Neurontin] 300 mg PO TID #30 capsule 06/06/17 HYDROcodone/Acet 7.5/325 mg [[place] 1 tab PO TID PRN #14 tablet 06/06/17 7.5-325 mg] Potassium Chloride 30 meq PO DAILY tab.er.prt 06/06/17 Allergies Allergy/AdvReac Type Severity Reaction Status Date / Time codeine AdvReac Vomiting Verified 03/10/17 11:44 [From Tylenol-Codeine #3] All systems ED: reviewed and negative except as stated. Review of Systems: As Per HPI Constitutional: Denies: fever, chills, weakness Eyes: Denies: eye pain, eye discharge ENT ED: Denies: ear pain, throat pain Cardiovascular: Reports: dyspnea on exertion, paroxysmal nocturnal dyspnea. Denies: chest pain, palpitations Respiratory: Reports: cough, dyspnea, wheezes Gastrointestinal: Denies: abdominal pain, nausea, vomiting Genitourinary: Denies: urgency, dysuria, frequency Musculoskeletal: Denies: back pain, neck pain Integumentary: Denies: rash, abrasion Neurological: Reports: weakness. Denies: headache Psychiatric: Denies: anxiety, depression Endocrine: Denies: heat or cold intolerance Hematological/Lymphatic: Reports: easy bruising Allergic/Immunologic: Denies: facial swelling Past Medical History - Past Medical History Attestation: Yes The following information was validated with the patient. Source: old records reviewed, obtained from family, nursing notes reviewed Medical history: Reports: arthritis, atrial fibrillation, cardiomyopathy, CHF, COPD, coronary artery disease, diabetes, GERD, GI bleed, hyperlipidemia, hypertension, myocardial infarction, TIA, venous stasis, valvular heart disease , other Surgical history: Reports: Psychiatric history: Reports: anxiety, depression [employer]LECT[employer] history: Reports: spontaneous - Social History Smoking Status: Never smoker Smokeless Tobacco Status: No Alcohol use: Reports: none Drug use: Reports: none Physical Exam - General Limitations: age General appearance: alert, in no apparent distress, anxious - Head Head exam: atraumatic, normocephalic, normal inspection - Eye Eye exam: Present: normal appearance, PERRL, EOMI - ENT ENT exam: normal exam, normal oropharynx, mucous membranes moist, TM's normal bilaterally, normal external ear exam - Neck Neck exam: Present: normal inspection, full ROM, trachea midline - Chest Chest inspection: Present: normal inspection, symmetric chest wall rise - Respiratory Respiratory exam: Present: wheezes, prolonged expiratory phase - Cardiovascular Cardiovascular exam: Present: regular rate, normal rhythm, normal heart sounds - Abdominal Exam Abdominal exam: Present: soft, Non-Tender, normal bowel sounds. Absent: mass, pulsatile mass - Extremities Exam Extremities exam: Present: normal inspection, full ROM, normal capillary refill , pedal edema. Absent: tenderness, joint swelling, calf tenderness - Expanded Lower Extremity Exam Gait: not tested/not observed - Back Exam Back exam: Present: normal inspection, full ROM. Absent: muscle spasm - Neurological Exam Neurological exam: Present: alert, CN II-XII intact - Psychiatric Psychiatric exam: Present: normal affect, normal mood - Skin Skin exam: Present: warm, dry, intact, normal color Course Course Narrative: She arrives on 4 L nasal cannula holding sats are 98% patient though has little bit of confusion she does not really know why she is here family this states that they just unable to care for her that she is just beyond what they cannot they were told by hospice that if she gets admitted that they could help facilitate getting her admitted back to her care facility but there was concern that she is on a congestive heart failure or may have electrolyte abnormality labs were done chest x-rays done which is that she has had a little bit of hyperkalemia little bit congestive heart failure patient be admitted transferred to [facility] circinate Dr. Dean with consultation to hospice tomorrow Vital Signs Temperature 98.2 F 06/27/17 15:16 Pulse Rate 65 06/27/17 15:16 Respiratory Rate 16 06/27/17 15:16 Blood Pressure 95/58 06/27/17 15:16 O2 Sat by Pulse Oximetry 86 06/27/17 15:16 Temperature 98.2 F 06/27/17 15:16 Pulse Rate 82 06/27/17 17:25 Respiratory Rate 18 06/27/17 17:25 Blood Pressure 114/54 06/27/17 17:25 O2 Sat by Pulse Oximetry 90 06/27/17 17:25 Oxygen Delivery Oxygen Delivery Nasal Cannula Shortness of Breath/Dyspnea - Differential Diagnosis Likely: acute exacerbation of chronic obstructive airways disease, congestive heart failure, pneumonia, asthma with exacerbation - Medical Records Medical records reviewed: Yes I reviewed the patient's medical records. - Lab Data Lab results reviewed: Yes I reviewed the patient's lab results. Result diagrams: 06/27/17 15:54 06/27/17 15:54 Lab Results 06/27/17 06/27/17 Range/Units 15:54 15:54 WBC 6.0 (4.3-11.1) K/mcL RBC 3.74 L (3.82-4.97) M/mcL Hgb 11.0 L (11.5-15.4) g/dL Hct 39.2 (35.3-44.9) % MCV 104.8 H (83.0-100.0) fL MCH 29.4 (28.0-33.3) pg MCHC 28.1 L (31.6-35.5) g/dL RDW 16.4 H (11.5-14.5) % Plt Count 118 L (140-400) K/mcL MPV 11.3 (9.4-12.4) fL Immature Gran % 1.2 (0-4) % Seg Neutrophils % 72.3 % Lymphocytes % 16.1 % Monocytes % 9.6 % Eosinophils % 0.3 % Basophils % 0.5 % Neutrophils # 4.3 (1.6-8.9) K/mcL Lymphocytes # 1.0 (0.6-4.6) K/mcL Monocytes # 0.6 (0.0-1.3) K/mcL Eosinophils # 0.0 (0.0-0.6) K/mcL Basophils # 0.0 (0.0-0.2) K/mcL Platelet Estimate Slight Decrease L (Normal) Anisocytosis 1+ A (Not Present) Macrocytosis Present A (Not Present) Sodium 143 (136-145) mEq/L Potassium 5.9 H (3.5-4.5) mEq/L Chloride 93 L (98-109) mEq/L Carbon Dioxide 39 H (19-29) mEq/L BUN 42 H (7-20) mg/dL Creatinine 1.58 H (0.57-1.11) mg/dL Est GFR ( Amer) 39 L (> 60) Est GFR (Non-Af Amer) 32 L (> 60) BUN/Creatinine Ratio 27 H (6-26) Glucose 139 H (70-99) mg/dL Calculated Osmolality 309 H (280-300) Calcium 9.0 (8.6-10.8) mg/dL - Radiology Data Radiology results reviewed: Yes I reviewed the patient's radiology results. ITS Impressions Chest X-Ray 06/27/17 15:32 IMPRESSION: Re-demonstration of congestive heart failure is identified with a small to moderate right pleural effusion. D/ / 06/27/2017 15:47:38 Annamaria Arnold MD / [facility] Interpreting Provider: Annamaria Arnold MD - EKG Data EKG attestation: Yes I reviewed and interpreted this EKG. EKG results narrative: Atrial fib rate 78 QRS 100 QT 411 access 82 Critical Care Time Critical Care Time: No
[2017-06-27 16:03] LABS: Basophils % 0.5 %; Eosinophils % 0.3 %; Hematocrit 39.2 % (35.3-44.9); Immature Granulocytes % 1.2 % (0-4); Lymphocytes % 16.1 %; Mean Corpuscular HGB Conc 28.1 g/dL (31.6-35.5); Mean Corpuscular Hemoglobin 29.4 pg (28.0-33.3); Mean Corpuscular Volume 104.8 fL (83.0-100.0); Mean Platelet Volume 11.3 fL (9.4-12.4); Monocytes # 0.6 K/mcL (0.0-1.3); Monocytes % 9.6 %; Neutrophils # 4.3 K/mcL (1.6-8.9); Platelet Count 118 K/mcL (140-400); Red Blood Count 3.74 M/mcL (3.82-4.97); Red Cell Distribution Width 16.4 % (11.5-14.5); Segmented Neutrophils % 72.3 %
[2017-06-27 16:17] LABS: Potassium 5.9 mEq/L (3.5-4.5)
[2017-06-27 17:27] LABS: Anisocytosis 1+ (Not Present)
[2017-06-27 17:28] LABS: Macrocytosis Present (Not Present); Platelet Estimate Slight Decrease (Normal)
[2017-06-27] MEDS ORDERED: Acetaminophen 325 MG TABLET PO PRN (19:49)
[2017-06-27] MEDS ORDERED: Naloxone 0.4 MG/ML INJ IVP PRN (19:49)
[2017-06-27] MEDS ORDERED: Nitroglycerin 0.4 MG TAB.SUBL SL PRN (19:49)
[2017-06-27] MEDS: Gabapentin 300 MG CAPSULE PO SCH (21:10)
[2017-06-27] MEDS: 0.9 % Sodium Chloride 1,000 ML IVC SCH (21:10)
[2017-06-27] MEDS: Bumetanide 1 MG TABLET PO SCH (21:22)
[2017-06-27] MEDS: Budesonide/Formoterol 80/4.5 MDI IH SCH (22:27)
[2017-06-28] MEDS: Gabapentin 300 MG CAPSULE PO SCH ×2 (07:51→21:07)
[2017-06-28] MEDS: Bumetanide 1 MG TABLET PO SCH ×3 (07:51→16:16)
[2017-06-28] MEDS: *HR* HYDROcodone/Acet 7.5/325 mg TABLET PO PRN ×2 (07:52→21:07)
[2017-06-28] MEDS: Folic Acid 1 MG TABLET PO SCH (07:53)
[2017-06-28 08:09] LABS: Basophils % 0.4 %; Eosinophils % 0.7 %; Hematocrit 37.1 % (35.3-44.9); Hemoglobin 10.7 g/dL (11.5-15.4); Immature Granulocytes % 0.7 % (0-4); Lymphocytes # 0.8 K/mcL (0.6-4.6); Lymphocytes % 14.1 %; Mean Corpuscular HGB Conc 28.8 g/dL (31.6-35.5); Mean Corpuscular Hemoglobin 29.3 pg (28.0-33.3); Mean Corpuscular Volume 101.6 fL (83.0-100.0); Mean Platelet Volume 11.5 fL (9.4-12.4); Monocytes # 0.5 K/mcL (0.0-1.3); Monocytes % 8.2 %; Neutrophils # 4.3 K/mcL (1.6-8.9); Platelet Count 119 K/mcL (140-400); Red Blood Count 3.65 M/mcL (3.82-4.97); Red Cell Distribution Width 16.8 % (11.5-14.5); Segmented Neutrophils % 75.9 %
[2017-06-28 08:12] LABS: INR 1.7; Prothrombin Time 18.5 Seconds (9.4-12.1)
[2017-06-28 08:15] LABS: Activated Partial Thrombo Time 32.2 Seconds (26.0-36.0)
[2017-06-28 08:24] LABS: Calcium 8.7 mg/dL (8.6-10.3); Potassium 4.2 mEq/L (3.5-5.1)
[2017-06-28] MEDS ORDERED: Diltiazem CD (24hr) 120 MG CAPSULE PO SCH (09:00)
[2017-06-28] MEDS ORDERED: Isosorbide MONOnitrate (24 HR) 60 MG TAB.ER.24H PO SCH ×2 (09:00→12:45)
[2017-06-28] MEDS ORDERED: Aspirin 81 MG TAB.CHEW PO SCH ×2 (09:00→12:45)
[2017-06-28 09:22] LABS: Anisocytosis 1+ (Not Present); Hypochromasia Present (Not Present)
[2017-06-28] MEDS: Budesonide/Formoterol 80/4.5 MDI IH SCH ×2 (10:39→20:34)
--- NOTE | 2017-06-28 12:19 | Internal Med History&Physical ---
Date of Encounter: 06/28/17 Time of Encounter: 11:30 Assessment and Plan (1) Diastolic CHF, acute on chronic Current visit: No Status: Acute She has been started on home dose of Bumex and Coreg. Diltiazem will be discontinued and Coreg increased. Isosorbide will be increased. BN peptide will be monitored. (2) Venous stasis dermatitis of both lower extremities Current visit: No Status: Chronic We will treat for heart failure and edema as per above. (3) A-fib Current visit: No Status: Chronic Continue Plavix. Qualifiers: Atrial fibrillation type: chronic Qualified Code(s): I48.2 - Chronic atrial fibrillation (4) SANYA (acute kidney injury) Current visit: No Status: Acute Will monitor renal indices. (5) Anemia Current visit: Yes Status: Acute We will order anemia testing in a.m. Qualifiers: Qualified Code(s): D64.9 - Anemia, unspecified Internal Medicine - H&P: HPI Chief complaint: Dyspnea and hypoxemia Admitted From: Emergency Dept Plans for Post Hospital Care: Home History of present illness: Ms. Castaneda is a 76 year old female who came to emergency room a few hours after being discharged home from the [facility] with complaints of dyspnea and hypoxemia. The emergency room record reports her saturations were 60%. She was evaluated and felt to have exacerbation of heart failure and COPD. She was admitted to [facility] floor for ongoing care needs. Her cardiovascular history is significant for heart failure with preserved ejection fraction. Echocardiogram 02/06/2017 showed LVEF of 60% with increased thickness of the interventricular septum and posterior wall at 1.40 cm each. There was LAE at 4.40 cm. Diastolic function could not be assessed because of atrial fibrillation. There was mild aortic regurgitation, [id number] aortic stenosis with mean gradient 19 mmHg, and mild to moderate pulmonary hypertension with estimated RVSP of 36-46 mmHg. There was severe tricuspid regurgitation. A repeat limited echocardiogram 05/25/2017 showed no significant change. She had questionable NSTEMI June 2014 at [facility]. Heart catheter showed 20% stenosis in the mid RCA without intervention done. She has chronic atrial fibrillation and is maintained on Plavix since she had GI bleed on Xarelto. She denies DVT or pulmonary embolus. She has history of hypertension. Past Med Surg Social Fam HX - Past Medical History Medical history: arthritis, atrial fibrillation, cardiomyopathy, CHF, COPD, coronary artery disease, diabetes, GERD, GI bleed, hyperlipidemia, hypertension , myocardial infarction, TIA, venous stasis, valvular heart disease, other Psychiatric history: anxiety, depression - Past Surgical History Surgical History: - Social History Smoking Status: Never smoker Smokeless Tobacco Status: No Alcohol use: none Drug use: none - Family History Mother Living Status: Hx Family GI Disorders: Yes Father Hx Family Respiratory Disorders: Yes (COPD) Brother Living Status: Hx Family Cardiac Disorders: Yes Hx Family Respiratory Disorders: Yes Hx Family Endocrine Disorder: Yes Internal Medicine - H&P: Meds Citalopram Hydrobromide [Citalopram HBr] 10 mg PO DAILY 01/09/17 [History] Clopidogrel [Plavix] 75 mg PO DAILY 01/09/17 [History] Diltiazem HCl [Diltiazem ER] 120 mg PO QAM 01/09/17 [History] Ferrous Sulfate 325 mg PO DAILY 01/09/17 [History] Folic Acid 1 mg PO DAILY 01/09/17 [History] Nitroglycerin [Nitrostat] 0.4 mg SL Q5M PRN 01/09/17 [History] Pantoprazole Sodium [Protonix] 40 mg PO BID 01/09/17 [History] Ropinirole HCl [Requip] 3 mg PO HS 01/09/17 [History] Isosorbide MONOnitrate (24 HR) [Imdur] 60 mg PO DAILY 03/09/17 [History] Aspirin 81 mg PO DAILY tab.chew 03/12/17 [Rx] Carvedilol [Coreg] 6.25 mg PO BIDWM tablet 03/22/17 [Rx] Albuterol Sulfate [Albuterol Inhaler] 2 puff IH Q4H PRN #1 inhaler 04/10/17 [Rx] Fluticasone/Salmeterol [Advair 250-50 Diskus] 1 each IH BID #60 blst.w.dev 04/11 [Rx] Bumetanide [Bumex] 2 mg PO BID #60 tablet 04/30/17 [Rx] Acetaminophen [Tylenol] 650 mg PO Q6HR PRN tablet 06/06/17 [Rx] Docusate [Colace] 100 mg PO BID PRN capsule 06/06/17 [Rx] Gabapentin [Neurontin] 300 mg PO TID #30 capsule 06/06/17 [Rx] HYDROcodone/Acet 7.5/325 mg [Stewart 7.5-325 mg] 1 tab PO TID PRN #14 tablet 06/06 [Rx] Potassium Chloride 30 meq PO DAILY tab.er.prt 06/06/17 [Rx] 3 Allergy/AdvReac Type Severity Reaction Status Date / Time codeine AdvReac Vomiting Verified 03/10/17 11:44 [From Tylenol-Codeine #3] All Systems PM: A 10-system review of systems was performed and is negative for pertinent findings except as documented above in the HPI. Review of systems: Review of systems from her January 2017 [facility] hospitalization were reviewed and revised as below. Gen.: She states her weight is increased 10-20 pounds in the past year Cardiovascular: As per history of present illness Respiratory: She is a lifelong nonsmoker but has been diagnosed with COPD and wears oxygen 24/7 at home at 3 L/m GI: She denies disorders of her liver gallbladder or exocrine pancreas. She had GI bleed from taking Xarelto several years ago. She has rare GERD symptoms. : No history of hematuria dysuria or kidney stones Neurologic: She states she had a "mini stroke" in the past but no permanent neurologic deficit. She has history of RLS. She denies seizures. Endocrine: She was diagnosed with borderline DM 2 in the past. Hemoglobin A1c was 5.4% on 03/30/2017. She denies thyroid disease or hyperlipidemia Hematology/oncology: She denies blood disorders or cancers. She is anemic with anemia testing January 2017 showing iron 46, transferrin saturation 16%, transferrin 209, ferritin 234, B12 566, and folate 16.8. Psychiatric: She has depression but denies anxiety or other mental health issues Musk skeletal: She has DJD but denies gout or osteoporosis. - Constitutional Vitals: Temp Pulse Resp BP Pulse Ox 98.2 F 75 20 128/87 94 06/28/17 11:01 06/28/17 11:01 06/28/17 11:01 06/28/17 11:01 06/28/17 11:01 Exam: Gen.: She is a well-developed well-nourished female lying quietly in bed who appears in no severe distress at present time HEENT: Head is atraumatic and normocephalic. Eyes: EOMI. There is no scleral icterus. Mouth: Mucosa is dry Neck: There is no thyromegaly or adenopathy noted. Heart: Irregularly irregular. Tones are soft. No murmurs or gallops are heard Lungs: She has egophony in the right mid posterior lung field. No inspiratory crackles or expiratory wheezing is heard. Abdomen: Soft and nontender. No masses or guarding noted. Extremities: She has chronic venous stasis pigmentation changes of her feet as well as acute venous stasis discoloration. Dorsalis pedis and posttibial pulses are virtually nonpalpable. She has changes consistent with DJD and rheumatoid arthritis of her hands. Neurologic: Mental status: She is able to answer a few questions. She is lethargic. Cranial nerves: Smile is symmetric. Forehead wrinkles bilaterally. Tongue protrudes midline. EOMI. Motor: There is no pronator drift. Cerebellar: Finger to nose intact bilaterally. Skin: Warm and dry Internal Med - H&P Results - Labs CBC & Chem 7: 06/28/17 07:40 06/28/17 07:40 Labs: Short CBC 06/28/17 Range/Units 07:40 WBC 5.6 (4.3-11.1) K/mcL Hgb 10.7 L (11.5-15.4) g/dL Hct 37.1 (35.3-44.9) % Plt Count 119 L (140-400) K/mcL Neutrophils # 4.3 (1.6-8.9) K/mcL BMP 06/28/17 07:40 Sodium 141 Potassium 4.2 Chloride 95 L Carbon Dioxide 39 H BUN 40 H Creatinine 1.35 H Glucose 104 Calcium 8.7
[2017-06-28] MEDS ORDERED: Isosorbide MONOnitrate (24 HR) 60 MG TAB.ER.24H PO ONE (16:00)
[2017-06-28] MEDS: 0.9 % Sodium Chloride 1,000 ML IVC SCH (21:53)
[2017-06-29 06:40] LABS: Basophils % 0.4 %; Eosinophils # 0.1 K/mcL (0.0-0.6); Eosinophils % 2.4 %; Hematocrit 37.2 % (35.3-44.9); Hemoglobin 10.6 g/dL (11.5-15.4); Immature Granulocytes % 0.7 % (0-4); Lymphocytes # 0.8 K/mcL (0.6-4.6); Lymphocytes % 17.2 %; Mean Corpuscular HGB Conc 28.5 g/dL (31.6-35.5); Mean Corpuscular Hemoglobin 29.2 pg (28.0-33.3); Mean Corpuscular Volume 102.5 fL (83.0-100.0); Mean Platelet Volume 11.5 fL (9.4-12.4); Monocytes # 0.5 K/mcL (0.0-1.3); Monocytes % 10.8 %; Neutrophils # 3.1 K/mcL (1.6-8.9); Platelet Count 122 K/mcL (140-400); Red Blood Count 3.63 M/mcL (3.82-4.97); Red Cell Distribution Width 16.7 % (11.5-14.5); Segmented Neutrophils % 68.5 %
[2017-06-29 07:02] LABS: Calcium 8.5 mg/dL (8.6-10.3); Magnesium 2.3 mg/dL (1.6-2.6)
[2017-06-29 08:18] LABS: Anisocytosis 1+ (Not Present); Hypochromasia Present (Not Present)
[2017-06-29] MEDS: Bumetanide 1 MG TABLET PO SCH ×2 (09:58→15:51)
[2017-06-29] MEDS: Folic Acid 1 MG TABLET PO SCH (09:59)
[2017-06-29] MEDS: Isosorbide MONOnitrate (24 HR) 60 MG TAB.ER.24H PO SCH (09:59)
[2017-06-29] MEDS: Gabapentin 300 MG CAPSULE PO SCH ×2 (10:00→20:45)
--- NOTE | 2017-06-29 10:05 | Internal Med Progress Note ---
Date of Encounter: 06/29/17 Time of Encounter: 09:55 - Assessment and plan (1) Diastolic CHF, acute on chronic Current Visit: No Status: Acute Assessment and plan: June 29. Continue Coreg and Bumex and isosorbide. Will add Lanoxin (2) Venous stasis dermatitis of both lower extremities Current Visit: No Status: Chronic Assessment and plan: June 29. Continue present regimen. (3) A-fib Current Visit: No Status: Chronic Assessment and plan: June 29. Continue Plavix Qualifiers: Atrial fibrillation type: chronic Qualified Code(s): I48.2 - Chronic atrial fibrillation (4) SANYA (acute kidney injury) Current Visit: No Status: Acute Assessment and plan: June 29. Will monitor renal indices. (5) Anemia Current Visit: Yes Status: Acute Assessment and plan: June 29. Serum iron levels are low. We will change iron to 0630 with vitamin C. Qualifiers: Qualified Code(s): D64.9 - Anemia, unspecified - Subjective Interval history: June 29. She has no new complaints. - Constitutional Vitals: Temp Pulse Resp BP Pulse Ox 97.4 F L 89 16 118/70 98 06/29/17 07:25 06/29/17 09:56 06/29/17 07:25 06/29/17 09:56 06/29/17 09:56 Exam: She is sitting on the side of bed resting comfortably. Her affect is bright and cheerful. Her telemetry shows atrial fibrillation with controlled ventricular rate. I reviewed her medications and lab results. Internal Medicine: Result - Labs CBC & Chem 7: 06/29/17 05:08 06/29/17 05:08 Labs: Short CBC 06/29/17 Range/Units 05:08 WBC 4.5 (4.3-11.1) K/mcL Hgb 10.6 L (11.5-15.4) g/dL Hct 37.2 (35.3-44.9) % Plt Count 122 L (140-400) K/mcL Neutrophils # 3.1 (1.6-8.9) K/mcL BMP 06/29/17 05:08 Sodium 143 Potassium 4.0 Chloride 96 L Carbon Dioxide 42 H* BUN 44 H Creatinine 1.33 H Glucose 118 H Calcium 8.5 L - ABG Interpretation ABG results: PT/INR, D-dimer PT 18.5 Seconds (9.4-12.1) H 06/28/17 07:40 Consult Discharge Plan - Plan Referrals: NONE,PCP [Non-Partnered Physician] -
[2017-06-29] MEDS: Budesonide/Formoterol 80/4.5 MDI IH SCH ×2 (10:22→22:54)
[2017-06-29] MEDS: *HR* Digoxin 0.125 MG TABLET PO SCH (12:07)
[2017-06-29] MEDS: *HR* HYDROcodone/Acet 7.5/325 mg TABLET PO PRN (20:45)
[2017-06-30 06:30] LABS: Albumin 2.8 g/dL (3.5-5.7); Bilirubin,Total 1.2 mg/dL (0.3-1.0); Calcium 8.3 mg/dL (8.6-10.3); Globulin 2.9 g/dL (2.4-3.5); Potassium 4.4 mEq/L (3.5-5.1); Total Protein 5.7 g/dL (6.4-8.9)
[2017-06-30] MEDS ORDERED: Ascorbic Acid 500 MG TABLET PO SCH (06:30)
--- NOTE | 2017-06-30 06:42 | Electrocardiograph Report ---
[address] [address] Test Date: 2017-06-27 Pat Name: Elizabeth Castaneda Department: [id number] Room: [facility] Gender: F [employer] Compliance Officer: [id number] : 1940 Requested By: Sue Persaud Order Number: [id number] Reading MD: Yehuda Prajapati MD Measurements Intervals [place] Rate: 78 P: RI: 0 QRS: 82 QRSD: 100 T: 58 QT: 401 QTc: 434 Interpretive Statements ATRIAL FIBRILLATION Electronically Signed On 06-30-2017 6:41:00 EST by Yehuda Prajapati MD
[2017-06-30] MEDS ORDERED: Aspirin 81 MG TAB.CHEW PO SCH (09:00)
[2017-06-30] MEDS: Budesonide/Formoterol 80/4.5 MDI IH SCH (09:32)
[2017-06-30] MEDS: Folic Acid 1 MG TABLET PO SCH (10:53)
[2017-06-30] MEDS: Isosorbide MONOnitrate (24 HR) 60 MG TAB.ER.24H PO SCH (10:53)
[2017-06-30] MEDS: *HR* HYDROcodone/Acet 7.5/325 mg TABLET PO PRN (10:53)
[2017-06-30] MEDS: Gabapentin 300 MG CAPSULE PO SCH (10:54)
[2017-06-30] MEDS: *HR* Digoxin 0.125 MG TABLET PO SCH (10:54)
[2017-06-30 11:42] VITALS: BP 101/68
--- NOTE | 2017-06-30 14:34 | Discharge Summary ---
Date of Encounter: 06/30/17 Time of Encounter: 14:24 - Discharge Diagnosis (1) Diastolic CHF, acute on chronic Priority: Primary Status: Acute (2) Venous stasis dermatitis of both lower extremities Priority: Secondary Status: Chronic (3) A-fib Priority: Secondary Status: Chronic Qualifiers: Atrial fibrillation type: chronic Qualified Code(s): I48.2 - Chronic atrial fibrillation (4) SANYA (acute kidney injury) Priority: Secondary Status: Acute (5) Anemia Priority: Secondary Status: Chronic Qualifiers: Anemia type: unspecified type Qualified Code(s): D64.9 - Anemia, unspecified - Discharge Medications Prescriptions: Gabapentin [Neurontin] 300 mg PO BID #60 capsule HYDROcodone/Acet 7.5/325 mg [[place] 7.5-325 mg] 1 tab PO TID PRN #180 tablet PRN Reason: Moderate Pain Home Medications: Citalopram Hydrobromide [Citalopram HBr] 10 mg PO DAILY 01/09/17 [History] Clopidogrel [Plavix] 75 mg PO DAILY 01/09/17 [History] Nitroglycerin [Nitrostat] 0.4 mg SL Q5M PRN 01/09/17 [History] Ropinirole HCl [Requip] 3 mg PO HS 01/09/17 [History] Carvedilol [Coreg] 6.25 mg PO BIDWM tablet 03/22/17 [Rx] Albuterol Sulfate [Albuterol Inhaler] 2 puff IH Q4H PRN #1 inhaler 04/10/17 [Rx] Fluticasone/Salmeterol [Advair 250-50 Diskus] 1 each IH BID #60 blst.w.dev 04/11 [Rx] Acetaminophen [Tylenol] 650 mg PO Q6HR PRN tablet 06/06/17 [Rx] Docusate [Colace] 100 mg PO BID PRN capsule 06/06/17 [Rx] Ascorbic Acid [Vitamin C] 500 mg PO DAILY@0630 tablet 06/30/17 [Rx] Aspirin 81 mg PO Q48H tab.chew 06/30/17 [Rx] Bumetanide [Bumex] 2 mg PO DAILY #60 tablet 06/30/17 [Rx] Digoxin [Lanoxin] 0.125 mg PO DAILY tablet 06/30/17 [Rx] Ferrous Sulfate 325 mg PO DAILY #0 06/30/17 [Rx] Gabapentin [Neurontin] 300 mg PO BID #60 capsule 06/30/17 [Rx] HYDROcodone/Acet 7.5/325 mg [[place] 7.5-325 mg] 1 tab PO TID PRN #180 tablet [Rx] Isosorbide MONOnitrate (24 HR) [Imdur] 120 mg PO DAILY tab.er.24h 06/30/17 [Rx] Allergies/Adverse Reactions: 3 Allergy/AdvReac Type Severity Reaction Status Date / Time codeine AdvReac Vomiting Verified 03/10/17 11:44 [From Tylenol-Codeine #3] Date of admission: 06/28/17 15:26 Primary care physician: Mallika Wooten CNP - Patient Status Disposition: Transfer SNF Condition: Fair Overall status at discharge: patient is progressing back to baseline - Discharge Instructions Follow Up With: NONE,PCP [Non-Partnered Physician] - - Diet and Activity Activity: resume usual activities as tolerated Diet: advance to your usual diet Hospital course: Ms. Castaneda is a 76 year old female who came to emergency room a few hours after being discharged home from the [facility] with complaints of dyspnea and hypoxemia. The emergency room record reports her saturations were 60%. She was evaluated and felt to have exacerbation of heart failure and COPD. She was admitted to [facility] for ongoing care needs. Initial orders were written by the emergency room physician. I saw her on June 28 and perform the history and physical. She was continued on Bumex and Coreg. Diltiazem was discontinued and isosorbide was increased. Attempt was made to increase Coreg but she developed borderline hypotension and her lower dose will be resumed. Lanoxin was started on June 29 and will be continued at discharge. She clinically improvement with decreased edema and dyspnea. She will be followed clinically and have follow-up Bn peptide [facility] [place]. Azotemia improved with creatinine decreasing to 1.23 and estimated GFR rising to 42 by day of discharge. Anemia testing showed iron 25, transferrin saturation 8%, transferrin 212, ferritin 237, B12 707, and folate 37. Folate acid will be discontinued and she will be given ferrous sulfate with vitamin C. Her PPI will also be discontinued. On June 30 arrangements were complete for her to be discharged to [facility] for ongoing care needs. I will follow with her there. - Time Spent with Patient Total time spent providing and/or coordinating discharge services: - Constitutional Vitals: Temp Pulse Resp BP Pulse Ox 98.1 F 81 18 101/68 95 06/30/17 11:00 06/30/17 11:00 06/30/17 11:00 06/30/17 11:00 06/30/17 11:00
--- NOTE | 2017-06-30 14:45 | Physician Discharge Referral ---
ExtendedCare Referral Info Transfer To: [place] Provider in Charge: Jermaine Provider in Charge after Transfer: PCP (Jermaine) - Diagnosis (1) Diastolic CHF, acute on chronic Priority: Primary Status: Acute (2) Venous stasis dermatitis of both lower extremities Priority: Secondary Status: Chronic (3) A-fib Priority: Secondary Status: Chronic (4) SANYA (acute kidney injury) Priority: Secondary Status: Acute (5) Anemia Priority: Secondary Status: Chronic Prognosis: Fair Aware of Diagnosis: Patient Aware of Prognosis: Patient - Transfer Medications Prescriptions: Gabapentin [Neurontin] 300 mg PO BID #60 capsule HYDROcodone/Acet 7.5/325 mg [[place] 7.5-325 mg] 1 tab PO TID PRN #180 tablet PRN Reason: Moderate Pain Home Medications: Citalopram Hydrobromide [Citalopram HBr] 10 mg PO DAILY 01/09/17 [History] Clopidogrel [Plavix] 75 mg PO DAILY 01/09/17 [History] Nitroglycerin [Nitrostat] 0.4 mg SL Q5M PRN 01/09/17 [History] Ropinirole HCl [Requip] 3 mg PO HS 01/09/17 [History] Carvedilol [Coreg] 6.25 mg PO BIDWM tablet 03/22/17 [Rx] Albuterol Sulfate [Albuterol Inhaler] 2 puff IH Q4H PRN #1 inhaler 04/10/17 [Rx] Fluticasone/Salmeterol [Advair 250-50 Diskus] 1 each IH BID #60 blst.w.dev 04/11 [Rx] Acetaminophen [Tylenol] 650 mg PO Q6HR PRN tablet 06/06/17 [Rx] Docusate [Colace] 100 mg PO BID PRN capsule 06/06/17 [Rx] Ascorbic Acid [Vitamin C] 500 mg PO DAILY@0630 tablet 06/30/17 [Rx] Aspirin 81 mg PO Q48H tab.chew 06/30/17 [Rx] Bumetanide [Bumex] 2 mg PO DAILY #60 tablet 06/30/17 [Rx] Digoxin [Lanoxin] 0.125 mg PO DAILY tablet 06/30/17 [Rx] Ferrous Sulfate 325 mg PO DAILY #0 06/30/17 [Rx] Gabapentin [Neurontin] 300 mg PO BID #60 capsule 06/30/17 [Rx] HYDROcodone/Acet 7.5/325 mg [[place] 7.5-325 mg] 1 tab PO TID PRN #180 tablet [Rx] Isosorbide MONOnitrate (24 HR) [Imdur] 120 mg PO DAILY tab.er.24h 06/30/17 [Rx] Allergies/Adverse Reactions: 3 Allergy/AdvReac Type Severity Reaction Status Date / Time codeine AdvReac Vomiting Verified 03/10/17 11:44 [From Tylenol-Codeine #3] - Respiratory Orders Oxygen / L per min (2 L/m by nasal cannula as needed to keep sat greater than 90 %.) Smoking Cessation: Smoking cessation has been advised. For more information, call the [place] Tobacco Quit Line at 3-795-DSJE-NOW. - Lab Orders Lab Orders: Other (include drug levels w/frequency) (CBC, BMP and BN peptide in 1 week.) - Rehabiliation Orders Rehab Potential: Fair Rehab Orders: Evaluation for Physical Therapy, Evaluation for Occupational Therapy - Diet Orders No Added Salt (ANDREW) CERTIFICATION: I certify that the transfer of the above named patient to an Extended Care Facility is necessary for the continuing treatment of the diagnosis listed. The above information is true and accurate reflection of patient's current condition. Confidential - Redisclosure prohibited without a patient's written consent.
[2017-06-30] MEDS: Bumetanide 1 MG TABLET PO SCH (14:54)
== END 2017-06-30 16:15 | DRG 292 ==
LOC: EMEROOPIK 15:15 → INPPIK 15:15
PROVIDERS: ADMIT Internal Medicine; ATTEND Internal Medicine